=== PATIENT | male | born 1965 | race African-American/Black ===

== ENCOUNTER 2021-07-03 00:03 | Inpatient (IN) | payer MEDICARE, MEDICAID, SELFPAY ==
[2021-07-03 00:15] VITALS: BP 133/86; PULSE 100; RESP 18; TEMP 36.2; O2SAT 98
--- NOTE | 2021-07-03 03:11 | PC.NURSE ---
Pt signed a 3 day on 07/03/21. Up on 07/07/21.
[2021-07-03 03:19] VITALS: BMI 27.3
--- NOTE | 2021-07-03 04:21 | PC.ADMIT ---
Pt is a 55 yo male admitted to the unit after referral from [facility]. Transferred [place] [facility] to [facility]
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
[2021-07-03 06:23] LABS: Glucose, Whole Blood 170 mg/dL (60-115)
[2021-07-03] MEDS: Omeprazole 20 MG CAPSULE.DR PO (06:31)
[2021-07-03 07:44] LABS: Cholesterol 102 mg/dL; HDL Cholesterol 49 mg/dL; LDL Cholesterol Calculated 43 mg/dl; Triglycerides 50 mg/dL
[2021-07-03 08:16] LABS: Estimated Average Glucose 180 mg/dL; Hemoglobin A1c % 7.9 %
[2021-07-03] MEDS: Losartan Potassium 25 MG TABLET PO (08:49)
[2021-07-03] MEDS: lamoTRIgine 25 MG TABLET PO (08:49)
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
[2021-07-03] MEDS: Insulin Glargine,Hum.rec.anlog 100 UNIT/ML 10 ML VIAL 70 UNIT SUBCUT (08:50)
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
[2021-07-03 11:54] LABS: Glucose, Whole Blood 221 mg/dL (60-115)
[2021-07-03] MEDS: Insulin Lispro 100 UNIT/ML 3 ML VIAL SUBCUT ×3 (13:16→22:01)
[2021-07-03 17:03] LABS: Glucose, Whole Blood 156 mg/dL (60-115)
[2021-07-03 17:25] VITALS: BP 172/95; PULSE 83; TEMP 37; O2SAT 100
[2021-07-03 21:56] LABS: Glucose, Whole Blood 284 mg/dL (60-115)
[2021-07-03] MEDS: traZODone HCL 50 MG TABLET PO (22:03)
[2021-07-03] MEDS: risperiDONE 2 MG TABLET PO (22:03)
[2021-07-04 06:00] VITALS: BP 153/79; PULSE 72; RESP 16
[2021-07-04 06:50] LABS: Glucose, Whole Blood 171 mg/dL (60-115)
[2021-07-04 07:51] LABS: Estimated Average Glucose 180 mg/dL; Hemoglobin A1c % 7.9 %
[2021-07-04 07:53] LABS: Alanine Aminotransferase 16 U/L (0-40); Albumin Level 3.8 g/dL (3.5-5.0); Alkaline Phosphatase 90 U/L (39-117); Anion Gap 11 (12-20); Aspartate Amino Transferase 18 U/L (5-37); Blood Urea Nitrogen 9 mg/dL (9-16); Calcium 9.8 mg/dL (8.4-10.2); Carbon Dioxide 26 mmol/L (22-29); Chloride 106 mmol/L (96-108); Creatinine Clr Calc Pharmacy 78.8; Estimated Glomerular Filt Rate 57; Glucose Fasting 330 mg/dL (60-99); Potassium 4.9 mmol/L (3.3-5.1); Sodium 138 mmol/L (135-145); Total Protein 6.2 g/dL (6.5-8.0)
[2021-07-04 07:57] LABS: Cholesterol 124 mg/dL; HDL Cholesterol 56 mg/dL; LDL Cholesterol Calculated 58 mg/dl; Triglycerides 53 mg/dL
[2021-07-04 08:16] LABS: TSH reflex Free T4 2.74 uIU/mL (0.32-4.0)
[2021-07-04] MEDS: Insulin Lispro 100 UNIT/ML 3 ML VIAL SUBCUT ×4 (08:17→22:07)
[2021-07-04] MEDS: Insulin Glargine,Hum.rec.anlog 100 UNIT/ML 10 ML VIAL 70 UNIT SUBCUT (08:18)
[2021-07-04] MEDS: Losartan Potassium 25 MG TABLET PO (08:19)
[2021-07-04] MEDS: Omeprazole 20 MG CAPSULE.DR PO (08:19)
[2021-07-04 12:00] LABS: Glucose, Whole Blood 199 mg/dL (60-115)
[2021-07-04 13:55] LABS: Reflex LDLD? No
--- NOTE | 2021-07-04 17:00 | HO.PSYCHPN ---
Subjective Subjective Date of Service: 07/04/21 Reason For Visit: PTSD, MDD; recurrent episode Interim History: Patient shared that he is feeling better today. He said he has decided that he and his just need time away from each other and he says he will find another place to live. He says he has no plans to see her at this time. He denies SI and HI. Shares gratitude for the idea that may be exaggerating some things in his mind and that that realization was relieving. Patient remains convinced however that his is having an affair and that his delusional concerns are reality. Patient said he would like to discharge however he says that magnetic tape typewriter operator has full permission and that he signed a release of information to talk with his and trusts that magnetic tape typewriter operator will be fair. Mental Status Exam Mental Status Exam Narrative: Pt is alert and oriented; behavior is cooperative and calm; patient is in emotional distress; dressed appropriately in casual attire with adequate hygiene; mood is described as better and affect congruent; eye contact appropriate; Speech is normal rate, volume and prosody and not pressured; no psychomotor agitation/retardation present; thought process is organized and goal directed; Thought content is on delusional thoughts; denies any SI/HI. There is no evidence of perceptual disturbance and denies AVH.? Patients insight and judgment are impaired. Diagnostics Vital Signs (24Hr): Vital Signs - 24 hr 07/03/21 17:25 07/04/21 06:00 Temperature 98.6 F Pulse Rate 83 72 Respiratory Rate 16 Blood Pressure 172/95 H 153/79 H Pulse Oximetry 100 BMI result Body Mass Index 27.3 Labs Results: 07/04/21 07:22 Labs: Laboratory Results - last 48 hr 07/03/21 07/03/21 07/03/21 06:20 07:13 07:13 Sodium Potassium Chloride Carbon Dioxide Anion Gap BUN Creatinine Estim Creat Clear Calc Estimated GFR POC Glucose 170 H Fasting Glucose Estimat Average Glucose 180 Hemoglobin A1c % 7.9 Calcium Total Bilirubin AST ALT Alkaline Phosphatase Total Protein Albumin Triglycerides 50 Cholesterol 102 LDL Cholesterol, Calc 43 HDL Cholesterol 49 TSH 07/03/21 07/03/21 07/03/21 11:49 16:48 21:47 Sodium Potassium Chloride Carbon Dioxide Anion Gap BUN Creatinine Estim Creat Clear Calc Estimated GFR POC Glucose 221 H 156 H 284 H Fasting Glucose Estimat Average Glucose Hemoglobin A1c % Calcium Total Bilirubin AST ALT Alkaline Phosphatase Total Protein Albumin Triglycerides Cholesterol LDL Cholesterol, Calc HDL Cholesterol TSH 07/04/21 07/04/21 07/04/21 06:40 07:22 07:22 Sodium 138 Potassium 4.9 Chloride 106 Carbon Dioxide 26 Anion Gap 11 L BUN 9 Creatinine 1.30 Estim Creat Clear Calc 78.8 Estimated GFR 57 POC Glucose 171 H Fasting Glucose 330 H Estimat Average Glucose 180 Hemoglobin A1c % 7.9 Calcium 9.8 Total Bilirubin 1.0 AST 18 ALT 16 Alkaline Phosphatase 90 Total Protein 6.2 L Albumin 3.8 Triglycerides Cholesterol LDL Cholesterol, Calc HDL Cholesterol TSH 07/04/21 07/04/21 07:22 11:52 Sodium Potassium Chloride Carbon Dioxide Anion Gap BUN Creatinine Estim Creat Clear Calc Estimated GFR POC Glucose 199 H Fasting Glucose Estimat Average Glucose Hemoglobin A1c % Calcium Total Bilirubin AST ALT Alkaline Phosphatase Total Protein Albumin Triglycerides 53 Cholesterol 124 D LDL Cholesterol, Calc 58 HDL Cholesterol 56 TSH 2.74 Medications Medications Current Medications Al Hydroxide/Mg Hydroxide (Magnesium Hydrox/Alum Hydrox 30 Ml Oral.Susp) 30 ml PO Q6H PRN PRN Reason: Heartburn/Nausea Diphenhydramine HCl (Diphenhydramine Hcl 25 Mg Tablet) 50 mg PO Q4H PRN PRN Reason: agitation Haloperidol (Haloperidol 5 Mg Tablet) 5 mg PO Q4H PRN PRN Reason: agitation Hydroxyzine HCl (Hydroxyzine Hcl 50 Mg Tablet) 50 mg PO QID PRN PRN Reason: Anxiety Insulin Glargine (Insulin Glargine,Hum.Rec.Anlog 100 Unit/Ml 10 Ml Vial) 70 unit SUBCUT DAILY [facility] Last Admin: 07/04/21 08:18 Dose: 70 unit Documented by: Insulin Human Lispro (Insulin Lispro 100 Unit/Ml 3 Ml Vial) 0 unit SUBCUT QIDACHS [facility]; Protocol Last Admin: 07/04/21 12:04 Dose: 2 unit Documented by: Lorazepam (Lorazepam 1 Mg Tablet) 1 mg PO TID PRN PRN Reason: Anxiety Lorazepam (Lorazepam 1 Mg Tablet) 2 mg PO Q4H PRN PRN Reason: agitation Losartan Potassium (Losartan Potassium 25 Mg Tablet) 25 mg PO DAILY [facility]; Protocol Last Admin: 07/04/21 08:19 Dose: 25 mg Documented by: Magnesium Hydroxide (Milk Of Magnesia 30 Ml Oral.Susp) 30 ml PO DAILY PRN PRN Reason: Constipation Nicotine Polacrilex (Nicotine Polacrilex 2 Mg Gum) 4 mg BUCCAL Q2H PRN PRN Reason: Nicotine Cravings Omeprazole (Omeprazole 20 Mg Capsule.Dr) 20 mg PO DAILY@0630 [facility] Last Admin: 07/04/21 08:19 Dose: 20 mg Documented by: Risperidone (Risperidone 2 Mg Tablet) 2 mg PO BEDTIME [facility] Last Admin: 07/03/21 22:03 Dose: 2 mg Documented by: Trazodone HCl (Trazodone Hcl 50 Mg Tablet) 50 mg PO BEDTIME [facility] Last Admin: 07/03/21 22:03 Dose: 50 mg Documented by: Trazodone HCl (Trazodone Hcl 50 Mg Tablet) 50 mg PO BEDTIME PRN PRN Reason: Insomnia Allergies Allergies Allergy/AdvReac Type Severity Reaction Status Date / Time acetaminophen [From Vicodin] Allergy Unknown Hives Verified 07/03/21 03:10 hydrocodone [From Vicodin] Allergy Unknown Hives Verified 07/03/21 03:10 NSAIDS (Non-Steroidal Allergy Unknown Hives Verified 07/03/21 03:11 Anti-Inflamma bee pollen [bee stings] AdvReac Severe Anaphylaxis Verified 07/03/21 03:10 lisinopril AdvReac Severe Angioedema Verified 07/03/21 03:10 Assessment & Plan Assessment & Plan (1) Delusional disorder: Status: Acute Code(s): F22 - Delusional disorders (2) Diabetes: Status: Acute Code(s): E11.9 - Type 2 diabetes mellitus without complications Plan Patient is a 55-year-old male with history of PTSD, depression and substance abuse, 5 years sober, and 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 Patient reports that his 1st psychiatric hospitalization occurred this past March 2019 to when he called crisis feeling stressed that his was cheating on him. Patient was started on Risperdal 1 mg q.h.s. and Lamictal. -according to patient he has had never had any psychotic symptoms and that this past March is the 1st time he was ever psychiatrically admitted or had worries about 's infidelity -patient was briefly on Risperdal which was at a low dose and only for a couple of weeks; he stopped taking it due to delusional thought that his in her lower were tampering with the medication -while it is possible his is having an affair, it is exceedingly unlikely to the point of delusional that they are tampering with his Risperdal and poisoning his insulin; also patient is convinced that she and partner were and the bedroom although police found no other person. -patient denies any SI or HI but accepts that he may have said such things in heat of being emotionally overwhelmed and distraught and under the influence of alcohol and cocaine -patient agrees to restarted Risperdal and increasing dose -it is curious that patient has had no other psychiatric admissions prior to this past March; he also denies struggling with what could be considered delusional ideas prior to 3 months ago. Will need collateral. hx of cancer makes a paraneoplastic syndrome a rule out, though an unlikely one 07/04/21 patient id a better mood however lacks insight and continues to have paranoid delusion; still need collateral to complete the picture PLAN: CV Q 15 minute checks Risperdal and increased to 2 mg; may continue titrating Continue Lantus 70 units daily; patient said that at [facility] his A1c was within normal limits however he agrees to leave dose as is for now as magnetic tape typewriter operator could not find lab work Continue losartan Hold hydrochlorothiazide as patient's blood pressure is currently within normal limits; this is at patient's request and magnetic tape typewriter operator agrees Labs for [facility] reviewed: Creatinine 1.3 other was BUN, electrolytes within normal limits COVID negative WBC mildly elevated at 11.2 Will repeat labs I spent minutes with the patient and/or on the patient floor today, greater than?50% of which was spent counseling/coordinating care. Patient educated on: diagnosis Informed Consent: further education needed Reason for contiued inpatient stay Substantial Risk for: med/psych decompensation
[2021-07-04 17:31] LABS: Glucose, Whole Blood 239 mg/dL (60-115)
[2021-07-04 20:33] LABS: Glucose, Whole Blood 165 mg/dL (60-115)
[2021-07-04] MEDS: Magnesium Hydrox/Alum Hydrox 30 ML ORAL.SUSP PO (22:05)
[2021-07-04] MEDS: risperiDONE 2 MG TABLET PO (22:05)
[2021-07-04] MEDS: traZODone HCL 50 MG TABLET PO (22:05)
[2021-07-05 06:00] VITALS: BP 115/80; PULSE 96; RESP 16; TEMP 36.2; O2SAT 100
[2021-07-05] MEDS: Omeprazole 20 MG CAPSULE.DR PO (06:53)
[2021-07-05 07:25] LABS: Glucose, Whole Blood 155 mg/dL (60-115)
[2021-07-05] MEDS: Losartan Potassium 25 MG TABLET PO (09:05)
[2021-07-05] MEDS: Insulin Glargine,Hum.rec.anlog 100 UNIT/ML 10 ML VIAL 70 UNIT SUBCUT (09:05)
[2021-07-05] MEDS: Insulin Lispro 100 UNIT/ML 3 ML VIAL SUBCUT ×2 (09:06→12:21)
[2021-07-05 12:17] LABS: Glucose, Whole Blood 253 mg/dL (60-115)
--- NOTE | 2021-07-05 16:18 | P.PNPSI_ITS ---
Subjective Subjective Date of Service: 07/05/21 Reason For Visit: PTSD, MDD; recurrent episode Interim History: Aircraft Pneudraulics Repairer and patient discussed fiction and nonfiction prose writer's conversation with his . Patient was touched him became tearful realizing how concerned she was about him saying that he really did not know that she still cared. Aircraft Pneudraulics Repairer talked about how truly scared of him she was at which point patient broke down and tearfully exclaimed how truly sorry he was that he scared her. How much he did not mean to do that and how much she misses her. He repeated i'm so-so sorry that I scared her... He said that knowing this, how truly scared she was means that he needs to stay way from her so that he does not scare her further and that it is solidified in his mind he needs to move on. That point fiction and nonfiction prose writer shared with patient fiction and nonfiction prose writer's concerns for patient's diagnosis and that his mind is playing tricks on him. Initially patient felt shut down, however he was willing to consider this as a possibility even to the point of saying he will retract is 3 day notice and increase Risperdal on the chance that this is true, that his mind is playing tricks on him and that his worries are delusional. Patient shared how hard it is for him to be on the unit, feeling confined. He also repeated how hard it was for him to have to stay in the emergency room for 8 days, without talking to any provider, feeling marginalized and locked in and how that experiences influencing his current stay on the unit. However patient seem to feel like he would be able to handle it and said again he agrees to stay. Regarding Risperdal, patient like it to be titrated quickly to see if he can be effective rather than err on the side of under dosing. Aircraft Pneudraulics Repairer did not mention the letters or drilling doors shut Collateral: Aircraft Pneudraulics Repairer talked with patient's Sasha today who explains that in the past 20+ years of their relationship, patient has never had any psychotic symptoms or manic symptoms until this past March. She reports that he had been becoming paranoid. He called her to come home quickly and when she got home, she reports the light bulb had been on screwed and the room was dark, he had a knife in his hand and said he was not feeling well. He had some tea and said taste the Tea and was insistent on it. He then called the police to say that his had poisoned the Tea. Patient was for the 1st time psychiatrically hospitalized at [facility] at which time he was started on Risperdal. She said about 2 weeks ago she was at home and the police showed up saying that her called the cane loader to say that someone was in the house and that there were cameras in the house that could verify (no camera's). His says that he has been drilling the closet door shut to prevent anyone from hiding in there and then has drilled the front door shut so that knowing can get in or out. Patient said that she is very scared. He threatened to kill her and then also port ammonia underneath t he locked door to make her come out of the room she was hiding. Patient said that she and her daughter just found letters that he had wrote, 1 to his daughter and 1 to his son saying that he plans to kill his . Reportedly patient told his daughter that he was planning to come to the house to get his things and that it would be unnecessary for a police to be present. Mental Status Exam Mental Status Exam Narrative: Pt is alert and oriented; behavior is cooperative and calm; patient is in em otional distress; dressed appropriately in casual attire with adequate hygiene; mood is described as distraught and affect congruent, tearful; eye contact appropriate; Speech is normal rate, volume and prosody and not pressured; no psychomotor agitation/retardation present; thought process is organized and goal directed; Thought content is on paranoid, delusional thoughts; denies any SI/HI. There is no evidence of perceptual disturbance and denies AVH.? Patients insight and judgment are impaired. Diagnostics Vital Signs (24Hr): Vital Signs - 24 hr 07/05/21 06:00 Temperature 97.2 F Pulse Rate 96 Respiratory Rate 16 Blood Pressure 115/80 Pulse Oximetry 100 BMI result Body Mass Index 27.3 Labs Results: 07/04/21 07:22 Labs: Laboratory Results - last 48 hr 07/03/21 07/03/21 07/04/21 16:48 21:47 06:40 Sodium Potassium Chloride Carbon Dioxide Anion Gap BUN Creatinine Estim Creat Clear Calc Estimated GFR POC Glucose 156 H 284 H 171 H Fasting Glucose Estimat Average Glucose Hemoglobin A1c % Calcium Total Bilirubin AST ALT Alkaline Phosphatase Total Protein Albumin Triglycerides Cholesterol LDL Cholesterol, Calc HDL Cholesterol TSH 07/04/21 07/04/21 07/04/21 07:22 07:22 07:22 Sodium 138 Potassium 4.9 Chloride 106 Carbon Dioxide 26 Anion Gap 11 L BUN 9 Creatinine 1.30 Estim Creat Clear Calc 78.8 Estimated GFR 57 POC Glucose Fasting Glucose 330 H Estimat Average Glucose 180 Hemoglobin A1c % 7.9 Calcium 9.8 Total Bilirubin 1.0 AST 18 ALT 16 Alkaline Phosphatase 90 Total Protein 6.2 L Albumin 3.8 Triglycerides 53 Cholesterol 124 D LDL Cholesterol, Calc 58 HDL Cholesterol 56 TSH 2.74 07/04/21 07/04/21 07/04/21 11:52 17:25 20:21 Sodium Potassium Chloride Carbon Dioxide Anion Gap BUN Creatinine Estim Creat Clear Calc Estimated GFR POC Glucose 199 H 239 H 165 H Fasting Glucose Estimat Average Glucose Hemoglobin A1c % Calcium Total Bilirubin AST ALT Alkaline Phosphatase Total Protein Albumin Triglycerides Cholesterol LDL Cholesterol, Calc HDL Cholesterol TSH 07/05/21 07/05/21 06:56 12:10 Sodium Potassium Chloride Carbon Dioxide Anion Gap BUN Creatinine Estim Creat Clear Calc Estimated GFR POC Glucose 155 H 253 H Fasting Glucose Estimat Average Glucose Hemoglobin A1c % Calcium Total Bilirubin AST ALT Alkaline Phosphatase Total Protein Albumin Triglycerides Cholesterol LDL Cholesterol, Calc HDL Cholesterol TSH Medications Medications Current Medications Al Hydroxide/Mg Hydroxide (Magnesium Hydrox/Alum Hydrox 30 Ml Oral.Susp) 30 ml PO Q6H PRN PRN Reason: Heartburn/Nausea Last Admin: 07/04/21 22:05 Dose: 30 ml Documented by: Diphenhydramine HCl (Diphenhydramine Hcl 25 Mg Tablet) 50 mg PO Q4H PRN PRN Reason: agitation Haloperidol (Haloperidol 5 Mg Tablet) 5 mg PO Q4H PRN PRN Reason: agitation Hydroxyzine HCl (Hydroxyzine Hcl 50 Mg Tablet) 50 mg PO QID PRN PRN Reason: Anxiety Insulin Glargine (Insulin Glargine,Hum.Rec.Anlog 100 Unit/Ml 10 Ml Vial) 70 unit SUBCUT DAILY [facility] Last Admin: 07/05/21 09:05 Dose: 70 unit Documented by: Insulin Human Lispro (Insulin Lispro 100 Unit/Ml 3 Ml Vial) 0 unit SUBCUT QIDACHS [facility]; Protocol Last Admin: 07/05/21 12:21 Dose: 6 unit Documented by: Lorazepam (Lorazepam 1 Mg Tablet) 1 mg PO TID PRN PRN Reason: Anxiety Lorazepam (Lorazepam 1 Mg Tablet) 2 mg PO Q4H PRN PRN Reason: agitation Losartan Potassium (Losartan Potassium 25 Mg Tablet) 25 mg PO DAILY [facility]; Protocol Last Admin: 07/05/21 09:05 Dose: 25 mg Documented by: Magnesium Hydroxide (Milk Of Magnesia 30 Ml Oral.Susp) 30 ml PO DAILY PRN PRN Reason: Constipation Nicotine Polacrilex (Nicotine Polacrilex 2 Mg Gum) 4 mg BUCCAL Q2H PRN PRN Reason: Nicotine Cravings Omeprazole (Omeprazole 20 Mg Capsule.Dr) 20 mg PO DAILY@0630 [facility] Last Admin: 07/05/21 06:53 Dose: 20 mg Documented by: Risperidone (Risperidone 2 Mg Tablet) 4 mg PO BEDTIME [facility] Trazodone HCl (Trazodone Hcl 50 Mg Tablet) 50 mg PO BEDTIME [facility] Last Admin: 07/04/21 22:05 Dose: 50 mg Documented by: Trazodone HCl (Trazodone Hcl 50 Mg Tablet) 50 mg PO BEDTIME PRN PRN Reason: Insomnia Allergies Allergies Allergy/AdvReac Type Severity Reaction Status Date / Time acetaminophen [From Vicodin] Allergy Unknown Hives Verified 07/03/21 03:10 hydrocodone [From Vicodin] Allergy Unknown Hives Verified 07/03/21 03:10 NSAIDS (Non-Steroidal Allergy Unknown Hives Verified 07/03/21 03:11 Anti-Inflamma bee pollen [bee stings] AdvReac Severe Anaphylaxis Verified 07/03/21 03:10 lisinopril AdvReac Severe Angioedema Verified 07/03/21 03:10 Assessment & Plan Assessment & Plan (1) Delusional disorder: Status: Acute Code(s): F22 - Delusional disorders (2) Diabetes: Status: Acute Code(s): E11.9 - Type 2 diabetes mellitus without complications Plan Patient is a 55-year-old male with history of PTSD, depression and substance abuse, 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 Patient reports that his 1st psychiatric hospitalization occurred this past March 2019 to when he called crisis feeling stressed that his was cheating on him. Patient was started on Risperdal 1 mg q.h.s. and Lamictal. -according to patient he has had never had any psychotic symptoms and that this past March is the 1st time he was ever psychiatrically admitted or had worries about 's infidelity -patient was briefly on Risperdal which was at a low dose and only for a couple of weeks; he stopped taking it due to delusional thought that his in her lower were tampering with the medication -while it is possible his is having an affair, it is exceedingly unlikely to the point of delusional that they are tampering with his Risperdal and poisoning his insulin; also patient is convinced that she and partner were and the bedroom although police found no other person. -patient denies any SI or HI but accepts that he may have said such things in heat of being emotionally overwhelmed and distraught and under the influence of alcohol and cocaine -patient agrees to restarted Risperdal and increasing dose -it is curious that patient has had no other psychiatric admissions prior to this past March; he also denies struggling with what could be considered delusional ideas prior to 3 months ago. Will need collateral. CORRECTION:? At this time there does not seem to be history of cancer via his 's report and that patient only had a benign bile duct tumor that was removed, obviously making a paraneoplastic syndrome a very unlikely contributor. 07/05 patient continues to have paranoid delusions however he is open to considering that it is possible his mind is playing tricks on him and is thus willing to increase Risperdal and remain on the unit for treatment collateral obtained from who reports paranoid delusional thinking which started for the 1st time this past March and has resulted in to other psychiatric admissions. She denies any such psychiatric symptoms prior to this March PLAN: CV Q 15 minute checks INCREASE to Risperdal and increased to 4 mg Qhs; Continue Lantus 70 units daily; patient said that at [facility] his A1c was within normal limits however he agrees to leave dose as is for now as fiction and nonfiction prose writer could not find lab work Continue losartan Hold hydrochlorothiazide as patient's blood pressure is currently within normal limits; this is at patient's request and fiction and nonfiction prose writer agrees Labs for [facility] reviewed: Creatinine 1.3 other was BUN, electrolytes within normal limits COVID negative WBC mildly elevated at 11.2 Will repeat labs I spent minutes with the patient and/or on the patient floor today, greater than?50% of which was spent counseling/coordinating care. Patient educated on: diagnosis Informed Consent: further education needed Reason for contiued inpatient stay Substantial Risk for: harm to others and rapid decompensation
[2021-07-05 22:00] VITALS: BP 130/84; PULSE 84; TEMP 36.8; O2SAT 100
[2021-07-05] MEDS: risperiDONE 2 MG TABLET 4 MG PO (22:34)
[2021-07-05] MEDS: traZODone HCL 50 MG TABLET PO (22:34)
[2021-07-06 06:00] VITALS: BP 121/82; PULSE 88; RESP 18; TEMP 36.7; O2SAT 100
[2021-07-06] MEDS: Omeprazole 20 MG CAPSULE.DR PO (06:38)
[2021-07-06 06:48] LABS: Glucose, Whole Blood 153 mg/dL (60-115)
[2021-07-06 08:18] LABS: Glucose, Whole Blood 177 mg/dL (60-115)
[2021-07-06] MEDS: Losartan Potassium 25 MG TABLET PO (08:22)
[2021-07-06] MEDS: Insulin Glargine,Hum.rec.anlog 100 UNIT/ML 10 ML VIAL 70 UNIT SUBCUT (08:23)
--- NOTE | 2021-07-06 10:28 | HO.PSYCHPN ---
Subjective Subjective Date of Service: 07/06/21 Reason For Visit: PTSD, MDD; recurrent episode Interim History: pt significantly improved. He realizes thoughts are delusional, paranoid and untrue. He does not think cheating on him, nor that she tried to poison him or has hidden men in the house. Pt realizes his mind was playing tricks on him and that Risperdal has helped resolve this. Pt remains adamant that he's never before had psychotic symptoms or an episode like this in his life (which corroborates) prior to a few months ago. He wonders if these paranoid delusions were driven by his own excessive guilt for his decades of infidelity, feeling that he deserved to be cheated on and wanted to believe it so as to punish himself; however fueled by substance abuse it became a paranoid reality to him. He says when i couldn't prove it [that she was cheating on him] i think i made something up so that i could believe it. He reflects that his concerns were ridiculous such as being poisoned, that she would sneak a man in the house while he was gone for just a few minutes and then hide him in closet...that there would be a man hidden in the room, but that transaction coordinator couldn't find him and that she would cheat on him at all as it's never been an issue in the past. Also that he would drill screws into closet doors to shut lock them. He denies writing a letter about killing her but says he made a video. He remains adamant that he never had any thoughts, intentions, desires to harm her in any way. pt also acknowledged that he's been using more often and higher amounts than previously reported, saying he was hesitant, not wanting to be judged. Mental Status Exam Mental Status Exam Narrative: Pt is alert and oriented; behavior is cooperative and calm; dressed appropriately in casual attire with good hygiene; mood is described good and affect congruent, bright, calm; eye contact appropriate; Speech is normal rate, volume and prosody and not pressured; no psychomotor agitation/retardation present; thought process is organized and goal directed; Thought content is on realizing that he's been paranoid with delusional thoughts that he now knows are not true; denies any SI/HI. There is no evidence of perceptual disturbance and denies AVH.? Patients insight and judgment are improved and adequate Diagnostics Vital Signs (24Hr): Vital Signs - 24 hr 07/05/21 22:00 07/06/21 06:00 Temperature 98.2 F 98.1 F Pulse Rate 84 88 Respiratory Rate 18 Blood Pressure 130/84 121/82 Pulse Oximetry 100 100 BMI result Body Mass Index 27.3 Labs Results: 07/04/21 07:22 Labs: Laboratory Results - last 48 hr 07/04/21 07/04/21 07/04/21 11:52 17:25 20:21 POC Glucose 199 H 239 H 165 H 07/05/21 07/05/21 07/06/21 06:56 12:10 06:42 POC Glucose 155 H 253 H 153 H 07/06/21 08:14 POC Glucose 177 H Medications Medications Current Medications Al Hydroxide/Mg Hydroxide (Magnesium Hydrox/Alum Hydrox 30 Ml Oral.Susp) 30 ml PO Q6H PRN PRN Reason: Heartburn/Nausea Last Admin: 07/04/21 22:05 Dose: 30 ml Documented by: Diphenhydramine HCl (Diphenhydramine Hcl 25 Mg Tablet) 50 mg PO Q4H PRN PRN Reason: agitation Haloperidol (Haloperidol 5 Mg Tablet) 5 mg PO Q4H PRN PRN Reason: agitation Hydroxyzine HCl (Hydroxyzine Hcl 50 Mg Tablet) 50 mg PO QID PRN PRN Reason: Anxiety Insulin Glargine (Insulin Glargine,Hum.Rec.Anlog 100 Unit/Ml 10 Ml Vial) 70 unit SUBCUT DAILY [facility] Last Admin: 07/06/21 08:23 Dose: 70 unit Documented by: Insulin Human Lispro (Insulin Lispro 100 Unit/Ml 3 Ml Vial) 0 unit SUBCUT QIDACHS [facility]; Protocol Last Admin: 07/06/21 08:17 Dose: Not Given Documented by: Lorazepam (Lorazepam 1 Mg Tablet) 1 mg PO TID PRN PRN Reason: Anxiety Lorazepam (Lorazepam 1 Mg Tablet) 2 mg PO Q4H PRN PRN Reason: agitation Losartan Potassium (Losartan Potassium 25 Mg Tablet) 25 mg PO DAILY [facility]; Protocol Last Admin: 07/06/21 08:22 Dose: 25 mg Documented by: Magnesium Hydroxide (Milk Of Magnesia 30 Ml Oral.Susp) 30 ml PO DAILY PRN PRN Reason: Constipation Nicotine Polacrilex (Nicotine Polacrilex 2 Mg Gum) 4 mg BUCCAL Q2H PRN PRN Reason: Nicotine Cravings Omeprazole (Omeprazole 20 Mg Capsule.Dr) 20 mg PO DAILY@0630 [facility] Last Admin: 07/06/21 06:38 Dose: 20 mg Documented by: Risperidone (Risperidone 2 Mg Tablet) 4 mg PO BEDTIME [facility] Last Admin: 07/05/21 22:34 Dose: 4 mg Documented by: Trazodone HCl (Trazodone Hcl 50 Mg Tablet) 50 mg PO BEDTIME [facility] Last Admin: 07/05/21 22:34 Dose: 50 mg Documented by: Trazodone HCl (Trazodone Hcl 50 Mg Tablet) 50 mg PO BEDTIME PRN PRN Reason: Insomnia Allergies Allergies Allergy/AdvReac Type Severity Reaction Status Date / Time acetaminophen [From Vicodin] Allergy Unknown Hives Verified 07/03/21 03:10 hydrocodone [From Vicodin] Allergy Unknown Hives Verified 07/03/21 03:10 NSAIDS (Non-Steroidal Allergy Unknown Hives Verified 07/03/21 03:11 Anti-Inflamma bee pollen [bee stings] AdvReac Severe Anaphylaxis Verified 07/03/21 03:10 lisinopril AdvReac Severe Angioedema Verified 07/03/21 03:10 Assessment & Plan Assessment & Plan (1) Delusional disorder: Status: Acute Code(s): F22 - Delusional disorders (2) Diabetes: Status: Acute Code(s): E11.9 - Type 2 diabetes mellitus without complications Plan Patient is a 55-year-old male with history of PTSD, depression and substance abuse, 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 Patient reports that his 1st psychiatric hospitalization occurred this past March 2019 to when he called crisis feeling stressed that his was cheating on him. Patient was started on Risperdal 1 mg q.h.s. and Lamictal. -according to patient he has had never had any psychotic symptoms and that this past March is the 1st time he was ever psychiatrically admitted or had worries about 's infidelity -patient was briefly on Risperdal which was at a low dose and only for a couple of weeks; he stopped taking it due to delusional thought that his in her lower were tampering with the medication -while it is possible his is having an affair, it is exceedingly unlikely to the point of delusional that they are tampering with his Risperdal and poisoning his insulin; also patient is convinced that she and partner were and the bedroom although police found no other person. -patient denies any SI or HI but accepts that he may have said such things in heat of being emotionally overwhelmed and distraught and under the influence of alcohol and cocaine -patient agrees to restarted Risperdal and increasing dose -it is curious that patient has had no other psychiatric admissions prior to this past March; he also denies struggling with what could be considered delusional ideas prior to 3 months ago. Will need collateral. CORRECTION:? At this time there does not seem to be history of cancer via his 's report and that patient only had a benign bile duct tumor that was removed, obviously making a paraneoplastic syndrome a very unlikely contributor. 07/05 patient continues to have paranoid delusions however he is open to considering that it is possible his mind is playing tricks on him and is thus willing to increase Risperdal and remain on the unit for treatment collateral obtained from who reports paranoid delusional thinking which started for the 1st time this past March and has resulted in to other psychiatric admissions. She denies any such psychiatric symptoms prior to this April 03 Patient reports clear understanding that he has been suffering from paranoid delusions which he now knows are not true at all; he says he knows his was not she did on him and that his behaviors and thoughts were ridiculous and completely based on psychotic symptoms. Patient feels tremendous relief and understands that Risperdal has been what has resolved the psychotic symptoms. Patient agrees to rescind 3 day notice and stay another day to further stabilize PLAN: CV; 3 day Q 15 minute checks Risperdal and increased to 4 mg Qhs; Continue Lantus 70 units daily; patient said that at [facility] his A1c was within normal limits however he agrees to leave dose as is for now as television script writer could not find lab work Continue losartan Hold hydrochlorothiazide as patient's blood pressure is currently within normal limits; this is at patient's request and television script writer agrees Labs for [facility] reviewed: Creatinine 1.3 other was BUN, electrolytes within normal limits COVID negative WBC mildly elevated at 11.2 Will repeat labs I spent minutes with the patient and/or on the patient floor today, greater than?50% of which was spent counseling/coordinating care. Patient educated on: diagnosis Informed Consent: understands Reason for contiued inpatient stay Substantial Risk for: stable for discharge
[2021-07-06 12:16] LABS: Glucose, Whole Blood 207 mg/dL (60-115)
[2021-07-06] MEDS: Insulin Lispro 100 UNIT/ML 3 ML VIAL SUBCUT ×3 (13:17→22:19)
[2021-07-06 16:57] LABS: Glucose, Whole Blood 213 mg/dL (60-115)
[2021-07-06 22:00] LABS: Glucose, Whole Blood 259 mg/dL (60-115)
[2021-07-06] MEDS: traZODone HCL 50 MG TABLET PO (22:18)
[2021-07-06] MEDS: risperiDONE 2 MG TABLET 4 MG PO (22:19)
[2021-07-06] MEDS: Magnesium Hydrox/Alum Hydrox 30 ML ORAL.SUSP PO (22:23)
[2021-07-07] MEDS: Omeprazole 20 MG CAPSULE.DR PO (06:34)
[2021-07-07 08:19] LABS: Glucose, Whole Blood 163 mg/dL (60-115)
[2021-07-07] MEDS: Insulin Lispro 100 UNIT/ML 3 ML VIAL SUBCUT ×4 (08:35→21:51)
[2021-07-07] MEDS: Losartan Potassium 25 MG TABLET PO (08:35)
[2021-07-07] MEDS: Insulin Glargine,Hum.rec.anlog 100 UNIT/ML 10 ML VIAL 70 UNIT SUBCUT (08:36)
[2021-07-07 08:39] VITALS: BP 119/76; PULSE 84; RESP 14; TEMP 36.3; O2SAT 98
[2021-07-07 12:35] LABS: Glucose, Whole Blood 240 mg/dL (60-115)
--- NOTE | 2021-07-07 17:42 | HO.PSYCHPN ---
Subjective Subjective Date of Service: 07/07/21 Reason For Visit: PTSD, MDD; recurrent episode Interim History: Patient remains in a good mood, is clear minded. Paranoid delusions remain fully resolved. Patient continues to discuss how Derailed he was by the psychotic symptoms and how gratefully is that he has an answer for what was happening and that he is back to his normal self. Account Services Coordinator discussed how it seems patient had some level of dissociation and patient agrees that this is the only way to account for him having said her done things he does not remember. Patient is hopeful that he and his can reconcile and that the restraining order will be let go. He says however that he will give his is much room in space as she needs to make this decision, will not go to the house and will respect the time she needs and whatever decision she decides. Patient is eager to get into NA. He says he will stay on the medication. Account Services Coordinator reviewed in detail the risks/side effects of Risperdal, including but not limited to galactorrhea and TD; patient asked questions and understood and wants to continue with this medication. Patient said he is grateful that he stayed another day which helped him to continue to reflect and process this past upsetting life event. Patient would like to discharge tomorrow to which global technical writer agrees. Account Services Coordinator talked to patient's who said that she did end up talking to patient on the phone and it sounds like her old back. She said he apologized and explained to her how he knows he was having paranoid delusions and that All the things he thought, he now knows were were untrue. She is relieved and agrees that he is very likely ready for discharge. Mental Status Exam Mental Status Exam Narrative: Pt is alert and oriented; behavior is cooperative and calm; dressed appropriately in casual attire with good hygiene; mood is described good and affect congruent, bright, calm; eye contact appropriate; Speech is normal rate, volume and prosody and not pressured; no psychomotor agitation/retardation present; thought process is organized and goal directed; Thought content is on realizing that he's been paranoid with delusional thoughts that he now knows are not true; denies any SI/HI. There is no evidence of perceptual disturbance and denies AVH.? Patients insight and judgment are improved and adequat Diagnostics Vital Signs (24Hr): Vital Signs - 24 hr 07/07/21 08:39 Temperature 97.4 F Pulse Rate 84 Respiratory Rate 14 Blood Pressure 119/76 Pulse Oximetry 98 BMI result Body Mass Index 27.3 Labs Results: 07/04/21 07:22 Labs: Laboratory Results - last 48 hr 07/06/21 07/06/21 07/06/21 06:42 08:14 12:12 POC Glucose 153 H 177 H 207 H 07/06/21 07/06/21 07/07/21 16:53 21:55 08:14 POC Glucose 213 H 259 H 163 H 07/07/21 12:31 POC Glucose 240 H Medications Medications Current Medications Al Hydroxide/Mg Hydroxide (Magnesium Hydrox/Alum Hydrox 30 Ml Oral.Susp) 30 ml PO Q6H PRN PRN Reason: Heartburn/Nausea Last Admin: 07/06/21 22:23 Dose: 30 ml Documented by: Diphenhydramine HCl (Diphenhydramine Hcl 25 Mg Tablet) 50 mg PO Q4H PRN PRN Reason: agitation Haloperidol (Haloperidol 5 Mg Tablet) 5 mg PO Q4H PRN PRN Reason: agitation Hydroxyzine HCl (Hydroxyzine Hcl 50 Mg Tablet) 50 mg PO QID PRN PRN Reason: Anxiety Insulin Glargine (Insulin Glargine,Hum.Rec.Anlog 100 Unit/Ml 10 Ml Vial) 70 unit SUBCUT DAILY [facility] Last Admin: 07/07/21 08:36 Dose: 70 unit Documented by: Insulin Human Lispro (Insulin Lispro 100 Unit/Ml 3 Ml Vial) 0 unit SUBCUT QIDACHS [facility]; Protocol Last Admin: 07/07/21 12:36 Dose: 4 unit Documented by: Lorazepam (Lorazepam 1 Mg Tablet) 1 mg PO TID PRN PRN Reason: Anxiety Lorazepam (Lorazepam 1 Mg Tablet) 2 mg PO Q4H PRN PRN Reason: agitation Losartan Potassium (Losartan Potassium 25 Mg Tablet) 25 mg PO DAILY [facility]; Protocol Last Admin: 07/07/21 08:35 Dose: 25 mg Documented by: Magnesium Hydroxide (Milk Of Magnesia 30 Ml Oral.Susp) 30 ml PO DAILY PRN PRN Reason: Constipation Nicotine Polacrilex (Nicotine Polacrilex 2 Mg Gum) 4 mg BUCCAL Q2H PRN PRN Reason: Nicotine Cravings Omeprazole (Omeprazole 20 Mg Capsule.Dr) 20 mg PO DAILY@0630 [facility] Last Admin: 07/07/21 06:34 Dose: 20 mg Documented by: Risperidone (Risperidone 2 Mg Tablet) 4 mg PO BEDTIME [facility] Last Admin: 07/06/21 22:19 Dose: 4 mg Documented by: Trazodone HCl (Trazodone Hcl 50 Mg Tablet) 50 mg PO BEDTIME [facility] Last Admin: 07/06/21 22:18 Dose: 50 mg Documented by: Trazodone HCl (Trazodone Hcl 50 Mg Tablet) 50 mg PO BEDTIME PRN PRN Reason: Insomnia Allergies Allergies Allergy/AdvReac Type Severity Reaction Status Date / Time acetaminophen [From Vicodin] Allergy Unknown Hives Verified 07/03/21 03:10 hydrocodone [From Vicodin] Allergy Unknown Hives Verified 07/03/21 03:10 NSAIDS (Non-Steroidal Allergy Unknown Hives Verified 07/03/21 03:11 Anti-Inflamma bee pollen [bee stings] AdvReac Severe Anaphylaxis Verified 07/03/21 03:10 lisinopril AdvReac Severe Angioedema Verified 07/03/21 03:10 Assessment & Plan Assessment & Plan (1) Delusional disorder: Status: Acute Code(s): F22 - Delusional disorders (2) Diabetes: Status: Acute Code(s): E11.9 - Type 2 diabetes mellitus without complications Plan Patient is a 55-year-old male with history of PTSD, depression and substance abuse, 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 Patient reports that his 1st psychiatric hospitalization occurred this past March 2019 to when he called crisis feeling stressed that his was cheating on him. Patient was started on Risperdal 1 mg q.h.s. and Lamictal. -according to patient he has had never had any psychotic symptoms and that this past March is the 1st time he was ever psychiatrically admitted or had worries about 's infidelity -patient was briefly on Risperdal which was at a low dose and only for a couple of weeks; he stopped taking it due to delusional thought that his in her lower were tampering with the medication -while it is possible his is having an affair, it is exceedingly unlikely to the point of delusional that they are tampering with his Risperdal and poisoning his insulin; also patient is convinced that she and partner were and the bedroom although police found no other person. -patient denies any SI or HI but accepts that he may have said such things in heat of being emotionally overwhelmed and distraught and under the influence of alcohol and cocaine -patient agrees to restarted Risperdal and increasing dose -it is curious that patient has had no other psychiatric admissions prior to this past March; he also denies struggling with what could be considered delusional ideas prior to 3 months ago. Will need collateral. CORRECTION:? At this time there does not seem to be history of cancer via his 's report and that patient only had a benign bile duct tumor that was removed, obviously making a paraneoplastic syndrome a very unlikely contributor. 07/05 patient continues to have paranoid delusions however he is open to considering that it is possible his mind is playing tricks on him and is thus willing to increase Risperdal and remain on the unit for treatment collateral obtained from who reports paranoid delusional thinking which started for the 1st time this past March and has resulted in to other psychiatric admissions. She denies any such psychiatric symptoms prior to this April 03 Patient reports clear understanding that he has been suffering from paranoid delusions which he now knows are not true at all; he says he knows his was not she did on him and that his behaviors and thoughts were ridiculous and completely based on psychotic symptoms. Patient feels tremendous relief and understands that Risperdal has been what has resolved the psychotic symptoms. Patient agrees to rescind 3 day notice and stay another day to further stabilize 07/07 All paranoid delusions remained resolved; patient is clear minded with good insight and judgment. Understands risks/side effects of medication and wants to continue with them. Patient would like to discharge tomorrow. He says he will stay away from his as long as she wants him to, though he is hopeful that next week when there is a court hearing for restraining order, they will be able to reconcile further. Patient has no SI, no HI and no AVH. He continues to demonstrate good behavioral and impulse control and is appropriate with peers and staff. Patient's request for discharge is honored as he is not in imminent risk of harm to self or others. PLAN: CV; 3 day Q 15 minute checks Risperdal and increased to 4 mg Qhs; Continue Lantus 70 units daily; patient said that at [facility] his A1c was within normal limits however he agrees to leave dose as is for now as global technical writer could not find lab work Continue losartan Hold hydrochlorothiazide as patient's blood pressure is currently within normal limits; this is at patient's request and global technical writer agrees Labs for [facility] reviewed: Creatinine 1.3 other was BUN, electrolytes within normal limits COVID negative WBC mildly elevated at 11.2 Will repeat labs I spent minutes with the patient and/or on the patient floor today, greater than?50% of which was spent counseling/coordinating care. Patient educated on: diagnosis, medication risk/benefits and substance abuse Informed Consent: understands Reason for contiued inpatient stay Substantial Risk for: stable for discharge
[2021-07-07 18:00] VITALS: BP 134/74; RESP 24; TEMP 36.8; O2SAT 98
[2021-07-07 18:00] LABS: Glucose, Whole Blood 204 mg/dL (60-115)
[2021-07-07] MEDS: traZODone HCL 50 MG TABLET PO (21:43)
[2021-07-07] MEDS: risperiDONE 2 MG TABLET 4 MG PO (21:43)
[2021-07-07] MEDS: LORazepam 1 MG TABLET PO (21:54)
[2021-07-07 22:00] LABS: Glucose, Whole Blood 262 mg/dL (60-115)
[2021-07-08] MEDS: Omeprazole 20 MG CAPSULE.DR PO (06:10)
[2021-07-08 07:00] LABS: Glucose, Whole Blood 101 mg/dL (60-115)
[2021-07-08] MEDS: Insulin Glargine,Hum.rec.anlog 100 UNIT/ML 10 ML VIAL 70 UNIT SUBCUT (09:20)
[2021-07-08] MEDS: Losartan Potassium 25 MG TABLET PO (09:20)
[2021-07-08 09:21] VITALS: BP 153/97; PULSE 107; TEMP 36.5
--- NOTE | 2021-07-08 09:21 | P.DS_ITS ---
DS: Providers Provider Date of Service: 07/08/21 Date of admission: 07/03/21 00:03 Date of discharge: 07/08/21 Primary care physician: Unknown Physician Attending physician on admission: Cody Tovar Consults: 07/03/21 02:43 Consult to Hospitalist Routine Consulting Provider: Hospitalist Reason For Exam: admitting physical Attending physician on discharge: Cody Tovar DS: Diagnosis Discharge Diagnosis (1) Delusional disorder: Status: Acute (2) Diabetes: Status: Acute DS: Medications Discharge Medications Home Medications: Previous Rx's Medication Instructions Recorded insulin glargine 100 unit/mL 70 unit (0.7 mL) SUBCUT QAM 30 07/08/21 subcutaneous solution (Lantus Days #21 ml U-100 Insulin) losartan 25 mg tablet 25 mg PO DAILY 30 Days #30 tab 07/08/21 pantoprazole 20 mg tablet,delayed 20 mg PO DAILY 30 Days #30 tab 07/08/21 release risperidone 2 mg tablet 4 mg PO BEDTIME 30 Days #60 tab 07/08/21 trazodone 50 mg tablet 50 mg PO BEDTIME PRN 30 Days #30 07/08/21 tab Mental Status Exam Mental Status Exam Narrative: Pt is alert and oriented; behavior is cooperative and calm; dressed appropriately in casual attire with good hygiene; mood is described good and affect congruent, bright, calm; eye contact appropriate; Speech is normal rate, volume and prosody and not pressured; no psychomotor agitation/retardation present; thought process is organized and goal directed; Thought content is on realizing that he's been paranoid with delusional thoughts that he now knows are not true; denies any SI/HI. There is no evidence of perceptual disturbance and denies AVH.? Patients insight and judgment are intact Data Data Completed and Pending Completed studies during hospitalization [Text1]: 07/03/21 07/03/21 07/03/21 06:20 07:13 07:13 Sodium Potassium Chloride Carbon Dioxide Anion Gap BUN Creatinine Estim Creat Clear Calc Estimated GFR POC Glucose 170 H Fasting Glucose Estimat Average Glucose 180 Hemoglobin A1c % 7.9 Calcium Total Bilirubin AST ALT Alkaline Phosphatase Total Protein Albumin Triglycerides 50 Cholesterol 102 LDL Cholesterol, Calc 43 HDL Cholesterol 49 TSH 07/03/21 07/03/21 07/03/21 11:49 16:48 21:47 Sodium Potassium Chloride Carbon Dioxide Anion Gap BUN Creatinine Estim Creat Clear Calc Estimated GFR POC Glucose 221 H 156 H 284 H Fasting Glucose Estimat Average Glucose Hemoglobin A1c % Calcium Total Bilirubin AST ALT Alkaline Phosphatase Total Protein Albumin Triglycerides Cholesterol LDL Cholesterol, Calc HDL Cholesterol TSH 07/04/21 07/04/21 07/04/21 06:40 07:22 07:22 Sodium 138 Potassium 4.9 Chloride 106 Carbon Dioxide 26 Anion Gap 11 L BUN 9 Creatinine 1.30 Estim Creat Clear Calc 78.8 Estimated GFR 57 POC Glucose 171 H Fasting Glucose 330 H Estimat Average Glucose 180 Hemoglobin A1c % 7.9 Calcium 9.8 Total Bilirubin 1.0 AST 18 ALT 16 Alkaline Phosphatase 90 Total Protein 6.2 L Albumin 3.8 Triglycerides Cholesterol LDL Cholesterol, Calc HDL Cholesterol TSH 07/04/21 07/04/21 07/04/21 07:22 11:52 17:25 Sodium Potassium Chloride Carbon Dioxide Anion Gap BUN Creatinine Estim Creat Clear Calc Estimated GFR POC Glucose 199 H 239 H Fasting Glucose Estimat Average Glucose Hemoglobin A1c % Calcium Total Bilirubin AST ALT Alkaline Phosphatase Total Protein Albumin Triglycerides 53 Cholesterol 124 D LDL Cholesterol, Calc 58 HDL Cholesterol 56 TSH 2.74 07/04/21 07/05/21 07/05/21 20:21 06:56 12:10 Sodium Potassium Chloride Carbon Dioxide Anion Gap BUN Creatinine Estim Creat Clear Calc Estimated GFR POC Glucose 165 H 155 H 253 H Fasting Glucose Estimat Average Glucose Hemoglobin A1c % Calcium Total Bilirubin AST ALT Alkaline Phosphatase Total Protein Albumin Triglycerides Cholesterol LDL Cholesterol, Calc HDL Cholesterol TSH 07/06/21 07/06/21 07/06/21 06:42 08:14 12:12 Sodium Potassium Chloride Carbon Dioxide Anion Gap BUN Creatinine Estim Creat Clear Calc Estimated GFR POC Glucose 153 H 177 H 207 H Fasting Glucose Estimat Average Glucose Hemoglobin A1c % Calcium Total Bilirubin AST ALT Alkaline Phosphatase Total Protein Albumin Triglycerides Cholesterol LDL Cholesterol, Calc HDL Cholesterol TSH 07/06/21 07/06/21 07/07/21 16:53 21:55 08:14 Sodium Potassium Chloride Carbon Dioxide Anion Gap BUN Creatinine Estim Creat Clear Calc Estimated GFR POC Glucose 213 H 259 H 163 H Fasting Glucose Estimat Average Glucose Hemoglobin A1c % Calcium Total Bilirubin AST ALT Alkaline Phosphatase Total Protein Albumin Triglycerides Cholesterol LDL Cholesterol, Calc HDL Cholesterol TSH 07/07/21 07/07/21 07/07/21 12:31 17:55 21:41 Sodium Potassium Chloride Carbon Dioxide Anion Gap BUN Creatinine Estim Creat Clear Calc Estimated GFR POC Glucose 240 H 204 H 262 H Fasting Glucose Estimat Average Glucose Hemoglobin A1c % Calcium Total Bilirubin AST ALT Alkaline Phosphatase Total Protein Albumin Triglycerides Cholesterol LDL Cholesterol, Calc HDL Cholesterol TSH 07/08/21 06:13 Sodium Potassium Chloride Carbon Dioxide Anion Gap BUN Creatinine Estim Creat Clear Calc Estimated GFR POC Glucose 101 Fasting Glucose Estimat Average Glucose Hemoglobin A1c % Calcium Total Bilirubin AST ALT Alkaline Phosphatase Total Protein Albumin Triglycerides Cholesterol LDL Cholesterol, Calc HDL Cholesterol TSH DS: Summary Hospital Course Hospital Course: Patient is a 55-year-old male with history of PTSD, depression and substance abuse and 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 Patient reports that his 1st psychiatric hospitalization occurred this past March 2019 to when he called crisis feeling stressed that his was cheating on him.? Patient was started on Risperdal 1 mg q.h.s. and Lamictal. On Admission, patient was calm, cooperative, polite and denied any SI or HI. He remained with paranoid delusion about his 's infidelity and associated concerns (she tried to poison him, men hiding in closet, cameras in the house...) and was without any insight. He was however willing to continue in increase Risperdal to 2mg; Lamictal was discontinued as he was only on 25 mg and without any manic symptoms; hydrochlorothiazide also not continued since patient's blood pressure was within normal limits with which patient agreed. Patient denied ever making homicidal threat or suicidal threat to his however he admitted he had used some alcohol and cannabis and that perhaps he said such things and does not remember them. He was also tearful to realize how frightened she was by him and denied any desire, thought or plan to harm his , maintaining that he loves her and will respect her restraining order and move on with his life if she does not want to be with him. Collateral was obtained and patient's shared that patient's delusions started for the very 1st time this past March and that prior to this there been no psychotic or manic symptoms at all in the 20+ years they have known each other. Patient remained cooperative, with good behavioral and impulse control on the unit, getting along well with staff and peers, attending groups and pleasant and appropriate in the milieu. He remained with no insight and believing delusions were real however patient was willingly endured reality testing by senior underwriter and agreed that it is possible his mind is playing tricks on him. He agreed to significantly increase Risperdal to 4 mg. reality testing. Following this increase patient's paranoid delusions resolved nearly overnight. Following this increase, Patient reported clear understanding that he has been suffering from paranoid delusions which he now knows are not true at all; he says he knows his was not cheating and his behaviors and thoughts were ridiculous and completely based on psychotic symptoms.? Patient also it volunteered that he had minimized his drug use and reports he has been using much more frequently and at higher amounts then he had for said; he understands how this significantly worsened his psychiatric symptoms and wants to continue to pursue sobriety and plans to get reinvolved with NA. feels tremendous relief and understands that Risperdal has been what has resolved the psychotic symptoms.? Patient rescinded 3 day notice to remain on unit for another day to continuing process this event. Patient remained in a good mood and clear minded with Paranoid delusions fully resolved. Patient felt he was tolerating the medications well and agreed to continue the dose. Race Board Attendant reviewed in detail the risks/side effects of Risperdal, including but not limited to galactorrhea and TD; patient asked questions and understood and wants to continue with this medication. Patient is hopeful that he and his can reconcile and that the restraining order will be let go.? He says however that he will fully respect the restraining order and give his is much room in space as she needs to make this decision and will not go to the house, contact her or go near hear until she wants him to and restraining order is retracted. Race Board Attendant talked to patient's who said that she did end up talking to patient on the phone and it sounds like her old back.? She said he apologized and explained to her how he knows he was having paranoid delusions and that All the things he thought, he now knows were were untrue. She is relieved and agrees that he is very likely ready for discharge. Patient asked for discharge. He remains without any SI, HI AVH or delusional thoughts and is clear minded, understanding that he has a psychiatric illness that requires medication which she is grateful for and intends to remain on. Patient will stay with either a friend or a hotel until he finds a more permanent place to live or restraining order it is retracted and he and his reconcile. Patient is not in imminent risk for harm to self or others and his request for discharge honored. Time spent discussing smoking cessation with patient: 3 to 10 minutes Status at Discharge Functional status at discharge: independent ambulation Overall status at discharge: patient is back to baseline Time Spent with Patient Time attestation: Total time spent providing and/or coordinating discharge services: Time spent: Greater than 30 minutes Discharge Plan Discharge Patient Disposition: Home, Self-Care Discharge Diagnosis: Delusional disorder Referrals: DAVID NORWOOD, THERAPIST [Other] - 07/12/21 1:00 pm (TELEHEALTH) LATESHA MANNING, PSYCHIATRY [Other] - 07/12/21 3:00 pm (TELEHEALTH) Physician,Unknown J [Primary Care Provider] - 1 Week Discharge Medications: New risperidone 2 mg Tablet 4 mg PO BEDTIME 30 Days Qty: 60 0RF Continued Lantus U-100 Insulin 100 unit/mL solution 70 unit subcut QAM 30 Days Qty: 21 0RF pantoprazole 20 mg Tablet,Delayed Release (Dr/Ec) 20 mg PO DAILY 30 Days Qty: 30 0RF losartan 25 mg Tablet 25 mg PO DAILY 30 Days Qty: 30 0RF Changed trazodone 50 mg tablet 50 mg PO BEDTIME PRN (Reason: insomnia) 30 Days Qty: 30 0RF Discontinued risperidone 1 mg tablet 1 tab PO BEDTIME 0RF hydroxyzine HCl 50 mg Tablet 50 mg PO QID PRN (Reason: Anxiety) 0RF lamotrigine [Lamictal] 25 mg tablet 1 tab PO DAILY 0RF lorazepam 1 mg Tablet 1 mg PO TID PRN (Reason: Anxiety) 0RF Discharge Orders: Discharge Order (Routine); Ordered 07/08/21 Ordered By: Cody Tovar Diet: diabetic diet Activity on Discharge: As tolerated Stand Alone Forms: Patient Portal Discharge page Care Plan Goals: Maintain mood and safe behaviors Take medications as prescribed Continue to pursue sobriety Practice coping skills Continue with outpatient providers and reach out to them as needed Health Concerns: Mood stability and behaviors Sobriety Diabetes Hypertension History of Bile Duct Tumor Plan of Treatment: Follow up with your PCP, psychiatric provider and other outpatient providers regarding above concerns Take medications as prescribed Assessment: Risk assessment at time of discharge:? Patient was interviewed prior to discharge and found to be fully oriented and without any SI or HI. Patient has insight and demonstrates good judgment in terms of wanting to pursue treatment. Patient is not in imminent risk of harm to self or others and has a safety plan that includes presenting to the closest ER or calling 911 if feeling unsafe.? Patient has been observed closely by nursing and unit staff throughout admission; patient has not engaged in any behaviors that suggest dangerousness to self or others and has demonstrated appropriate behaviors and impulse control
[2021-07-08 11:31] LABS: Glucose, Whole Blood 301 mg/dL (60-115)
[2021-07-08] MEDS: Naloxone HCl Nasal TAKE HOME 4 MG SPRAY NOSTRILALT (12:47)
== END 2021-07-08 13:19 | disposition home or self-care (01) | DRG 885 ==
PROVIDERS: Admitting Provider Psychiatry & Neurology Psychiatry; Visit Provider Psychiatry & Neurology Psychiatry
DX: F22 Delusional disorders (principal); F33.9 Major depressive disorder, recurrent, unspecified; R45.851 Suicidal ideations; F43.10 Post-traumatic stress disorder, unspecified; R45.850 Homicidal ideations; K21.9 Gastro-esophageal reflux disease without esophagitis; F10.10 Alcohol abuse, uncomplicated; F14.10 Cocaine abuse, uncomplicated; I10 Essential (primary) hypertension; E78.5 Hyperlipidemia, unspecified; E11.9 Type 2 diabetes mellitus without complications; Z88.6 Allergy status to analgesic agent; Z88.5 Allergy status to narcotic agent; Z79.4 Long term (current) use of insulin; Z79.899 Other long term (current) drug therapy
CPT/HCPCS: 36415; 80053; 80061; 82947; 83036; 84443

== ENCOUNTER 2022-03-05 02:27 | Inpatient (IN) | payer MEDICARE, MEDICAID, SELFPAY ==
[2022-03-05 02:33] VITALS: BP 128/85; PULSE 98; RESP 16; TEMP 37.3; O2SAT 98; BMI 24.8
[2022-03-05 02:40] LABS: Glucose, Whole Blood 201 mg/dL (60-115)
[2022-03-05 03:23] LABS: Appearance Urine Clear; Color Urine Yellow; Glucose Urine UA 100 mg/dL (Negative); Leukocyte Esterase Urine Negative (Negative); Nitrite Urine Negative (Negative); PH 5.5 (5.0-9.0); UMIC TRIGGER UA YES; Urine Blood Trace (Negative); Urine Ketones Negative (Negative); Urine Protein 100 (2+) mg/dL (Neg-Trace)
[2022-03-05 03:24] LABS: MANUAL DIFF FLAG NO
[2022-03-05 03:25] LABS: Basophils Percent Auto 0.3 % (0-2); Eosinophils Absolute Auto 0.1 X10*3/uL (0.0-0.4); Eosinophils Percent Auto 0.8 % (0-4); Hematocrit 38.2 % (42.0-52.0); Hemoglobin 13.3 g/dl (14.0-18.0); Imm Gran Abs Auto 0.03 X10*3/uL (0.00-0.03); Imm Gran Pct Auto 0.3 % (0.0-0.4); Lymphocytes Absolute Auto 1.7 X10*3/uL (1.2-4.9); Lymphocytes Percent Auto 17.3 % (20-40); Mean Corpuscular HGB Conc 34.8 g/dl (31.0-36.0); Mean Corpuscular Hemoglobin 28.7 pg (27.0-33.0); Mean Corpuscular Volume 82.3 fL (80.0-98.0); Mean Platelet Volume 9.4 fL (9.4-12.4); Monocytes Absolute Auto 0.8 X10*3/uL (0.1-1.2); Monocytes Percent Auto 8.3 % (2-11); Platelet Count 216 X10*3/uL (160-400); Red Blood Count 4.64 X10*6/uL (4.60-5.80); Red Cell Distribution Width 12.1 % (11.0-16.0); White Blood Count 9.6 X10*3/uL (4.8-10.8)
[2022-03-05 03:25] LABS: Bacteria Urine None Seen (None Seen); Hyaline Casts Urine 0-2 /LPF (0-2); RBC Urine 0-2 /HPF (0-2); WBC Urine 0-5 /HPF (0-5)
[2022-03-05 03:27] LABS: Amphetamine Screen Urine Not Detected (Not Detect); Barbiturates, Urine Not Detected (Not Detect); Benzodiazepines Screen Urine Not Detected (Not Detect); Cannabinoid Screen Urine POSITIVE (Not Detect); Cocaine Screen Urine POSITIVE (Not Detect); Fentanyl, urine Not Detected (Not Detect); Opiate Screen Urine Not Detected (Not Detect); Phencyclidine Screen Urine Not Detected (Not Detect)
[2022-03-05 03:27] LABS: COVID-19 Test Negative (Negative); IDNOW Serial# 6674DD1D
[2022-03-05 03:38] LABS: Alanine Aminotransferase 20 U/L (0-40); Albumin Level 4.3 g/dL (3.5-5.0); Alkaline Phosphatase 103 U/L (39-117); Anion Gap 15 (12-20); Aspartate Amino Transferase 33 U/L (5-37); Blood Urea Nitrogen 15 mg/dL (9-16); Calcium 9.9 mg/dL (8.4-10.2); Carbon Dioxide 22 mmol/L (22-29); Chloride 102 mmol/L (96-108); Creatinine Clr Calc Pharmacy 60.6; Estimated Glomerular Filt Rate 43; Glucose Random 223 mg/dL (60-115); Potassium 3.9 mmol/L (3.3-5.1); Sodium 135 mmol/L (135-145); Total Protein 6.6 g/dL (6.5-8.0)
[2022-03-05] MEDS: LORazepam 1 MG TABLET 2 MG PO (03:40)
[2022-03-05 03:52] LABS: Ethanol < 10 mg/dL
--- NOTE | 2022-03-05 04:55 | ED.PSYCH ---
HPI - Psych General Chief Complaint: Psychiatric Symptoms Stated Complaint: Crisis Time Seen by Provider: 03/05/22 02:34 Source: patient, EMS and police Mode of arrival: EMS History of Present Illness HPI Narrative: 56-year-old male who rise via EMS a section 12, escorted by police department, for attempts arson. Patient is threatening his family and has been off of this medication. Patient smells like gasoline and he is tearful that his is cheating on him and then sent him pictures of herself and her new male senior controls engineer. Related Data Home Medications Medication Instructions Recorded Confirmed dulaglutide 1.5 mg/0.5 mL 0.5 ml subcut QWEEK 03/05/22 03/05/22 subcutaneous pen injector (Trulicity) insulin glargine 100 unit/mL 70 unit subcut DAILY 03/05/22 03/05/22 subcutaneous solution (Lantus U-100 Insulin) losartan 50 mg-hydrochlorothiazide 1 tab PO DAILY 03/05/22 03/05/22 12.5 mg tablet trazodone 50 mg tablet 1 tab PO BEDTIME PRN insomnia 03/05/22 03/05/22 Allergies Allergy/AdvReac Type Severity Reaction Status Date / Time acetaminophen [From Vicodin] Allergy Unknown Hives Verified 07/03/21 03:10 hydrocodone [From Vicodin] Allergy Unknown Hives Verified 07/03/21 03:10 NSAIDS (Non-Steroidal Allergy Unknown Hives Verified 07/03/21 03:11 Anti-Inflamma bee pollen [bee stings] AdvReac Severe Anaphylaxis Verified 07/03/21 03:10 lisinopril AdvReac Severe Angioedema Verified 07/03/21 03:10 Review of Systems Review of Systems: Pertinent positives and negatives as per the HPI. [facility] Past Medical History Source: nursing notes reviewed Medical History Delusional disorder Diabetes GERD (gastroesophageal reflux disease) HTN (hypertension) Pancreatic cancer Family History Family History Other Diabetes HTN (hypertension) Social History Social History Household Members: Spouse and Children Housing: House Do you presently have visiting nurse or other home services: No Patient Tobacco Use Status: Never used Tobacco Substance Use Type: Marijuana Advance Directives: No Advance Directives Information Provided: No service: No Sexual orientation: Straight/Heterosexual Physical Exam Vital Signs: Vital Signs: Last Vital Signs Temp 99.1 F 03/05/22 02:33 Pulse 98 03/05/22 02:33 Resp 16 03/05/22 02:33 BP 128/85 03/05/22 02:33 Pulse Ox 98 03/05/22 02:33 O2 Del Method 03/05/22 02:33 BMI result Body Mass Index 24.8 VITAL SIGNS: Reviewed. GENERAL: Well developed, well nourished, in no acute distress. HEAD: Normocephalic/atraumatic EYES: PERRLA, EOMI LUNGS: Normal breath sounds. No adventitious sounds or accessory muscle use. SpO2<98> CARDIOVASCULAR: Regular rate and rhythm without noted murmurs ABDOMEN: Soft, non-tender, non-distended with bowel sounds. MUSCULOSKELETAL: No tenderness, deformities, or effusions noted on gross inspection. EXTREMITIES: No cyanosis, clubbing or edema. SKIN: Inspection of the skin reveals no rashes NEUROLOGIC: Alert and oriented x 3. Strength and sensation to light touch were grossly intact x 4, cranial nerves 2-12 are grossly intact. PSYCH: Depressed affect, tearful Medications Administered Discontinued Medications Generic Name Dose Route Start Last Admin Trade Name Carmeloq PRN Reason Stop Dose Admin Lorazepam 2 mg 03/05/22 03:37 03/05/22 03:40 Lorazepam 1 Mg Tablet PO 03/05/22 03:38 2 mg ONCE ONE Administration Medical Decision Making Medical Decision Making MDM Narrative: 56-year-old male who is decompensated and off of medications with an arson attempt and continued threats against family. I reviewed and interpreted the workup to be that patient has a mild acute on chronic kidney injury for which we will encourage fluid hydration and repeat a BMP. Otherwise, patient is noted to be positive for cocaine and marijuana but is COVID negative. Patient is otherwise medically cleared as the creatinine level should not preclude patient for by the care team. Lab Data 03/05/22 03:18 03/05/22 03:18 Labs: Lab Results 03/05/22 03/05/22 03/05/22 Range/Units 02:34 02:47 02:57 WBC (4.8-10.8) X10*3/uL RBC (4.60-5.80) X10*6/uL Hgb (14.0-18.0) g/dl Hct (42.0-52.0) % MCV (80.0-98.0) fL MCH (27.0-33.0) pg MCHC (31.0-36.0) g/dl RDW (11.0-16.0) % Plt Count (160-400) X10*3/uL MPV (9.4-12.4) fL Immature Gran % (Auto) (0.0-0.4) % Neut % (Auto) (45-73) % Lymph % (Auto) (20-40) % Branch % (Auto) (2-11) % Eos % (Auto) (0-4) % Baso % (Auto) (0-2) % Lymph # (Auto) (1.2-4.9) X10*3/uL Branch # (Auto) (0.1-1.2) X10*3/uL Eos # (Auto) (0.0-0.4) X10*3/uL Baso # (Auto) (0.0-0.2) X10*3/uL Abs Immat Gran (auto) (0.00-0.03) X10*3/uL Absolute Neuts (auto) (2.0-8.3) x10*3/uL Absolute Nucleated RBC (0.0-0.012) X10*3/uL Nucleated RBC % (auto) (0.0-0.2) /100WBC Sodium (135-145) mmol/L Potassium (3.3-5.1) mmol/L Chloride (96-108) mmol/L Carbon Dioxide (22-29) mmol/L Anion Gap (12-20) BUN (9-16) mg/dL Creatinine (0.5-1.4) mg/dL Estim Creat Clear Calc Estimated GFR POC Glucose 201 H (60-115) mg/dL Random Glucose (60-115) mg/dL Calcium (8.4-10.2) mg/dL Total Bilirubin (0.0-1.0) mg/dL AST (5-37) U/L ALT (0-40) U/L Alkaline Phosphatase (39-117) U/L Total Protein (6.5-8.0) g/dL Albumin (3.5-5.0) g/dL Urine Color Yellow Urine Appearance Clear Urine pH 5.5 (5.0-9.0) Ur Specific [place] 1.010 (1.005-1.025) Urine Protein 100 (2+) H (Neg-Trace) mg/dL Urine Glucose (UA) 100 H (Negative) mg/dL Urine Ketones Negative (Negative) mg/dL Urine Blood Trace H (Negative) Urine Nitrite Negative (Negative) Ur Leukocyte Esterase Negative (Negative) Urine RBC 0-2 (0-2) /HPF Urine WBC 0-5 (0-5) /HPF Ur Squamous Epith Cells 11-20 (0-2) /HPF Urine Bacteria None Seen (None Seen) Hyaline Casts 0-2 (0-2) /LPF Urine Opiates Screen (Not Detect) Urine Fentanyl Screen (Not Detect) Ur Barbiturates Screen (Not Detect) Ur Phencyclidine Scrn (Not Detect) Ur Amphetamines Screen (Not Detect) U Benzodiazepines Scrn (Not Detect) Urine Cocaine Screen (Not Detect) U Marijuana (THC) Screen (Not Detect) Ethyl Alcohol mg/dL COVID-19 ([facility]) Negative (Negative) COVID-19 Clin Com See Note 03/05/22 03/05/22 03/05/22 Range/Units 02:58 03:18 03:18 WBC 9.6 (4.8-10.8) X10*3/uL RBC 4.64 (4.60-5.80) X10*6/uL Hgb 13.3 L (14.0-18.0) g/dl Hct 38.2 L (42.0-52.0) % MCV 82.3 (80.0-98.0) fL MCH 28.7 (27.0-33.0) pg MCHC 34.8 (31.0-36.0) g/dl RDW 12.1 (11.0-16.0) % Plt Count 216 (160-400) X10*3/uL MPV 9.4 (9.4-12.4) fL Immature Gran % (Auto) 0.3 (0.0-0.4) % Neut % (Auto) 73.0 (45-73) % Lymph % (Auto) 17.3 L (20-40) % Branch % (Auto) 8.3 (2-11) % Eos % (Auto) 0.8 (0-4) % Baso % (Auto) 0.3 (0-2) % Lymph # (Auto) 1.7 (1.2-4.9) X10*3/uL Branch # (Auto) 0.8 (0.1-1.2) X10*3/uL Eos # (Auto) 0.1 (0.0-0.4) X10*3/uL Baso # (Auto) 0.0 (0.0-0.2) X10*3/uL Abs Immat Gran (auto) 0.03 (0.00-0.03) X10*3/uL Absolute Neuts (auto) 7.0 (2.0-8.3) x10*3/uL Absolute Nucleated RBC 0.000 (0.0-0.012) X10*3/uL Nucleated RBC % (auto) 0.0 (0.0-0.2) /100WBC Sodium 135 (135-145) mmol/L Potassium 3.9 D (3.3-5.1) mmol/L Chloride 102 (96-108) mmol/L Carbon Dioxide 22 (22-29) mmol/L Anion Gap 15 (12-20) BUN 15 (9-16) mg/dL Creatinine 1.67 H (0.5-1.4) mg/dL Estim Creat Clear Calc 60.6 Estimated GFR 43 POC Glucose (60-115) mg/dL Random Glucose 223 H (60-115) mg/dL Calcium 9.9 (8.4-10.2) mg/dL Total Bilirubin 3.0 H (0.0-1.0) mg/dL AST 33 (5-37) U/L ALT 20 (0-40) U/L Alkaline Phosphatase 103 (39-117) U/L Total Protein 6.6 (6.5-8.0) g/dL Albumin 4.3 (3.5-5.0) g/dL Urine Color Urine Appearance Urine pH (5.0-9.0) Ur Specific [place] (1.005-1.025) Urine Protein (Neg-Trace) mg/dL Urine Glucose (UA) (Negative) mg/dL Urine Ketones (Negative) mg/dL Urine Blood (Negative) Urine Nitrite (Negative) Ur Leukocyte Esterase (Negative) Urine RBC (0-2) /HPF Urine WBC (0-5) /HPF Ur Squamous Epith Cells (0-2) /HPF Urine Bacteria (None Seen) Hyaline Casts (0-2) /LPF Urine Opiates Screen Not Detected (Not Detect) Urine Fentanyl Screen Not Detected (Not Detect) Ur Barbiturates Screen Not Detected (Not Detect) Ur Phencyclidine Scrn Not Detected (Not Detect) Ur Amphetamines Screen Not Detected (Not Detect) U Benzodiazepines Scrn Not Detected (Not Detect) Urine Cocaine Screen POSITIVE H (Not Detect) U Marijuana (THC) Screen POSITIVE H (Not Detect) Ethyl Alcohol mg/dL COVID-19 ([facility]) (Negative) COVID-19 Clin Com 03/05/22 Range/Units 03:18 WBC (4.8-10.8) X10*3/uL RBC (4.60-5.80) X10*6/uL Hgb (14.0-18.0) g/dl Hct (42.0-52.0) % MCV (80.0-98.0) fL MCH (27.0-33.0) pg MCHC (31.0-36.0) g/dl RDW (11.0-16.0) % Plt Count (160-400) X10*3/uL MPV (9.4-12.4) fL Immature Gran % (Auto) (0.0-0.4) % Neut % (Auto) (45-73) % Lymph % (Auto) (20-40) % Branch % (Auto) (2-11) % Eos % (Auto) (0-4) % Baso % (Auto) (0-2) % Lymph # (Auto) (1.2-4.9) X10*3/uL Branch # (Auto) (0.1-1.2) X10*3/uL Eos # (Auto) (0.0-0.4) X10*3/uL Baso # (Auto) (0.0-0.2) X10*3/uL Abs Immat Gran (auto) (0.00-0.03) X10*3/uL Absolute Neuts (auto) (2.0-8.3) x10*3/uL Absolute Nucleated RBC (0.0-0.012) X10*3/uL Nucleated RBC % (auto) (0.0-0.2) /100WBC Sodium (135-145) mmol/L Potassium (3.3-5.1) mmol/L Chloride (96-108) mmol/L Carbon Dioxide (22-29) mmol/L Anion Gap (12-20) BUN (9-16) mg/dL Creatinine (0.5-1.4) mg/dL Estim Creat Clear Calc Estimated GFR POC Glucose (60-115) mg/dL Random Glucose (60-115) mg/dL Calcium (8.4-10.2) mg/dL Total Bilirubin (0.0-1.0) mg/dL AST (5-37) U/L ALT (0-40) U/L Alkaline Phosphatase (39-117) U/L Total Protein (6.5-8.0) g/dL Albumin (3.5-5.0) g/dL Urine Color Urine Appearance Urine pH (5.0-9.0) Ur Specific [place] (1.005-1.025) Urine Protein (Neg-Trace) mg/dL Urine Glucose (UA) (Negative) mg/dL Urine Ketones (Negative) mg/dL Urine Blood (Negative) Urine Nitrite (Negative) Ur Leukocyte Esterase (Negative) Urine RBC (0-2) /HPF Urine WBC (0-5) /HPF Ur Squamous Epith Cells (0-2) /HPF Urine Bacteria (None Seen) Hyaline Casts (0-2) /LPF Urine Opiates Screen (Not Detect) Urine Fentanyl Screen (Not Detect) Ur Barbiturates Screen (Not Detect) Ur Phencyclidine Scrn (Not Detect) Ur Amphetamines Screen (Not Detect) U Benzodiazepines Scrn (Not Detect) Urine Cocaine Screen (Not Detect) U Marijuana (THC) Screen (Not Detect) Ethyl Alcohol < 10 mg/dL COVID-19 ([facility]) (Negative) COVID-19 Clin Com Discharge Plan Discharge Clinical Impression: Delusional disorder, HTN (hypertension), Diabetes, GERD (gastroesophageal reflux disease) Patient Disposition: Still a Patient Prescriptions: No Action insulin glargine [Lantus U-100 Insulin] 100 unit/mL solution 70 unit subcut DAILY trazodone 50 mg tablet 1 tab PO BEDTIME PRN (Reason: insomnia) losartan-hydrochlorothiazide 50-12.5 mg tablet 1 tab PO DAILY Trulicity 1.5 mg/0.5 mL pen injector 0.5 ml subcut QWEEK Interventions: [place]-Suicide Risk Severity Scale Last Done: 03/05/22 02:39
--- NOTE | 2022-03-05 06:09 | PC.NURSE ---
Patient was tearful, upset, and mad at his for cheating and at children for covering up, POC @ 0318 ws 201, Ativan 2 mg po administered at 0340 for raising thought, med rec completed/APR active, behavior non concerning at this time, care team evaluation pending in the morning, VSS, will continue to monitor.
--- NOTE | 2022-03-05 08:04 | PC.NURSE ---
Pt resting quietly at this time, resp reg and even. NAD. Awaiting CARE team eval at this time.
[2022-03-05 08:41] LABS: Glucose, Whole Blood 272 mg/dL (60-115)
[2022-03-05 08:56] VITALS: BP 140/88; PULSE 75; RESP 16; TEMP 36.9; O2SAT 97
[2022-03-05] MEDS: hydroCHLOROthiazide 12.5 MG TABLET PO (09:12)
[2022-03-05] MEDS: Insulin Glargine,Hum.rec.anlog 100 UNIT/ML 10 ML VIAL 70 UNIT SUBCUT (09:12)
[2022-03-05] MEDS: Losartan Potassium 50 MG TABLET PO (09:12)
--- NOTE | 2022-03-05 13:27 | PC.NURSE ---
Maria Fernanda at bedside for pt eval.
--- NOTE | 2022-03-05 14:19 | ECG_ITS ---
Test Reason : CHEDCK QC/QTC Blood Pressure : / mmHG Vent. Rate : 062 BPM Atrial Rate : 062 BPM P-R Int : 132 ms QRS Dur : 080 ms QT Int : 458 ms P-R-T Axes : 053 042 061 degrees QTc Int : 464 ms Normal sinus rhythm Normal ECG When compared with ECG of 09-AUG-2006 12:52, T wave inversion no longer evident in Inferior leads T wave amplitude has increased in Lateral leads QT has lengthened Referred By: Johnny Benz Electronically Signed By:MILLER PARSON
--- NOTE | 2022-03-05 15:18 | PHA.MEDREC ---
Pharmacy Consult ? Medication Reconciliation RN has completed the medication reconciliation, PHARMACY REVIEWED.
[2022-03-05 16:52] VITALS: BP 127/76; PULSE 64; RESP 18; TEMP 36.8; O2SAT 98
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
[2022-03-05 20:50] LABS: Glucose, Whole Blood 160 mg/dL (60-115)
[2022-03-05] MEDS: Insulin Lispro 100 UNIT/ML 3 ML VIAL SUBCUT (21:00)
[2022-03-06 08:10] LABS: Estimated Average Glucose 235 mg/dL; Hemoglobin A1c % 9.8 %
[2022-03-06 08:14] LABS: Glucose, Whole Blood 75 mg/dL (60-115)
[2022-03-06 08:17] LABS: Alanine Aminotransferase 19 U/L (0-40); Albumin Level 3.8 g/dL (3.5-5.0); Alkaline Phosphatase 89 U/L (39-117); Anion Gap 11 (12-20); Aspartate Amino Transferase 27 U/L (5-37); Bilirubin Total 2.1 mg/dL (0.0-1.0); Blood Urea Nitrogen 16 mg/dL (9-16); Calcium 9.7 mg/dL (8.4-10.2); Carbon Dioxide 26 mmol/L (22-29); Chloride 108 mmol/L (96-108); Cholesterol 127 mg/dL; Creatinine Clr Calc Pharmacy 71.8; Estimated Glomerular Filt Rate 52; Glucose Fasting 79 mg/dL (60-99); HDL Cholesterol 68 mg/dL; LDL Cholesterol Calculated 47 mg/dl; Potassium 4.2 mmol/L (3.3-5.1); Sodium 141 mmol/L (135-145); Total Protein 5.9 g/dL (6.5-8.0); Triglycerides 62 mg/dL
[2022-03-06 08:40] VITALS: RESP 18
[2022-03-06 08:46] VITALS: BP 145/92; PULSE 80; RESP 18; TEMP 36.4; O2SAT 100
[2022-03-06] MEDS: Losartan Potassium 50 MG TABLET PO (08:59)
[2022-03-06] MEDS: hydroCHLOROthiazide 12.5 MG TABLET PO (08:59)
[2022-03-06] MEDS: hydrOXYzine HCL 25 MG TABLET PO ×2 (10:18→18:36)
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
[2022-03-06 12:34] LABS: Glucose, Whole Blood 275 mg/dL (60-115)
[2022-03-06 16:59] LABS: Glucose, Whole Blood 172 mg/dL (60-115)
[2022-03-06] MEDS: Insulin Lispro 100 UNIT/ML 3 ML VIAL SUBCUT ×2 (17:10→21:14)
--- NOTE | 2022-03-06 18:23 | PC.NURSE ---
Pt submitted a Three Day Notice on Monday03/06/2022 up on Monday03/09/2022.
[2022-03-06 19:22] VITALS: BP 137/68; PULSE 85
[2022-03-06] MEDS: risperiDONE 2 MG TABLET 4 MG PO (20:24)
[2022-03-06 21:04] LABS: Glucose, Whole Blood 156 mg/dL (60-115)
[2022-03-06] MEDS: Magnesium Hydrox/Alum Hydrox 30 ML ORAL.SUSP PO (21:18)
[2022-03-07 08:46] LABS: Glucose, Whole Blood 150 mg/dL (60-115)
[2022-03-07] MEDS: Losartan Potassium 50 MG TABLET PO (08:52)
[2022-03-07] MEDS: Insulin Glargine,Hum.rec.anlog 100 UNIT/ML 10 ML VIAL 70 UNIT SUBCUT (08:52)
[2022-03-07 09:00] VITALS: BP 143/81; PULSE 89; RESP 16; TEMP 36.2; O2SAT 99
[2022-03-07] MEDS: hydroCHLOROthiazide 12.5 MG TABLET PO (09:04)
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
[2022-03-07 12:24] LABS: Glucose, Whole Blood 299 mg/dL (60-115)
[2022-03-07] MEDS: Insulin Lispro 100 UNIT/ML 3 ML VIAL SUBCUT ×3 (12:26→20:52)
[2022-03-07 16:23] VITALS: BP 154/78; PULSE 98
[2022-03-07 17:17] LABS: Glucose, Whole Blood 268 mg/dL (60-115)
[2022-03-07] MEDS: risperiDONE 2 MG TABLET 4 MG PO (20:20)
[2022-03-07 20:48] LABS: Glucose, Whole Blood 189 mg/dL (60-115)
[2022-03-08 08:00] VITALS: BP 141/66; PULSE 83; RESP 16; TEMP 36.7; O2SAT 99
[2022-03-08 08:11] LABS: Glucose, Whole Blood 180 mg/dL (60-115)
[2022-03-08] MEDS: Insulin Glargine,Hum.rec.anlog 100 UNIT/ML 10 ML VIAL 70 UNIT SUBCUT (08:45)
[2022-03-08] MEDS: Insulin Lispro 100 UNIT/ML 3 ML VIAL SUBCUT ×4 (08:46→21:42)
[2022-03-08] MEDS: Losartan Potassium 50 MG TABLET PO (08:47)
[2022-03-08] MEDS: hydroCHLOROthiazide 12.5 MG TABLET PO (08:47)
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
[2022-03-08 12:00] LABS: Glucose, Whole Blood 281 mg/dL (60-115)
[2022-03-08] MEDS: hydrOXYzine HCL 25 MG TABLET PO (13:36)
[2022-03-08 16:44] LABS: Glucose, Whole Blood 262 mg/dL (60-115)
[2022-03-08 18:00] VITALS: BP 143/78; PULSE 91; RESP 18; TEMP 36.6; O2SAT 98
[2022-03-08] MEDS: risperiDONE 2 MG TABLET 4 MG PO (20:43)
[2022-03-08 21:17] LABS: Glucose, Whole Blood 227 mg/dL (60-115)
[2022-03-09 07:55] LABS: Glucose, Whole Blood 185 mg/dL (60-115)
[2022-03-09 08:15] VITALS: BP 123/58; PULSE 77; RESP 16; TEMP 36.3; O2SAT 98
[2022-03-09] MEDS: Insulin Lispro 100 UNIT/ML 3 ML VIAL SUBCUT ×3 (08:39→20:33)
[2022-03-09] MEDS: hydroCHLOROthiazide 12.5 MG TABLET PO (08:40)
[2022-03-09] MEDS: Losartan Potassium 50 MG TABLET PO (08:40)
[2022-03-09] MEDS: Insulin Glargine,Hum.rec.anlog 100 UNIT/ML 10 ML VIAL 70 UNIT SUBCUT (08:40)
[2022-03-09 09:54] LABS: Alanine Aminotransferase 17 U/L (0-40); Albumin Level 4.1 g/dL (3.5-5.0); Alkaline Phosphatase 120 U/L (39-117); Anion Gap 12 (12-20); Aspartate Amino Transferase 21 U/L (5-37); Blood Urea Nitrogen 16 mg/dL (9-16); Carbon Dioxide 26 mmol/L (22-29); Chloride 105 mmol/L (96-108); Estimated Glomerular Filt Rate 48; Glucose Random 190 mg/dL (60-115); Potassium 4.7 mmol/L (3.3-5.1); Sodium 138 mmol/L (135-145); Total Protein 6.4 g/dL (6.5-8.0)
--- NOTE | 2022-03-09 10:28 | PC.NURSE ---
Pt signed 3 day, up on tuesday 03/14. , social work, UR aware.
[2022-03-09 12:08] LABS: Glucose, Whole Blood 276 mg/dL (60-115)
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
[2022-03-09 18:00] VITALS: BP 154/90; PULSE 91; TEMP 36.8; O2SAT 99
[2022-03-09 18:12] LABS: Glucose, Whole Blood 276 mg/dL (60-115)
[2022-03-09 20:30] LABS: Glucose, Whole Blood 307 mg/dL (60-115)
[2022-03-09] MEDS: risperiDONE 2 MG TABLET 4 MG PO (20:34)
[2022-03-09] MEDS: Magnesium Hydrox/Alum Hydrox 30 ML ORAL.SUSP PO (20:34)
[2022-03-10 08:15] VITALS: BP 115/70; PULSE 79; TEMP 36.6; O2SAT 99
[2022-03-10 08:21] LABS: Glucose, Whole Blood 156 mg/dL (60-115)
[2022-03-10] MEDS: Insulin Lispro 100 UNIT/ML 3 ML VIAL SUBCUT ×4 (08:36→22:30)
[2022-03-10] MEDS: Losartan Potassium 50 MG TABLET PO (08:37)
[2022-03-10] MEDS: hydroCHLOROthiazide 12.5 MG TABLET PO (08:37)
[2022-03-10] MEDS: Insulin Glargine,Hum.rec.anlog 100 UNIT/ML 10 ML VIAL 70 UNIT SUBCUT (08:38)
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
[2022-03-10 12:18] LABS: Glucose, Whole Blood 170 mg/dL (60-115)
[2022-03-10 16:46] LABS: Glucose, Whole Blood 305 mg/dL (60-115)
[2022-03-10] MEDS: risperiDONE 1 MG TABLET PO (18:06)
[2022-03-10 18:34] VITALS: BP 164/74; PULSE 88
[2022-03-10 22:18] LABS: Glucose, Whole Blood 218 mg/dL (60-115)
[2022-03-10] MEDS: risperiDONE 2 MG TABLET 4 MG PO (22:25)
[2022-03-11 06:00] VITALS: BP 117/64; PULSE 66; RESP 14; TEMP 36.3; O2SAT 98
[2022-03-11] MEDS: hydroCHLOROthiazide 12.5 MG TABLET PO (08:17)
[2022-03-11] MEDS: risperiDONE 1 MG TABLET PO (08:17)
[2022-03-11] MEDS: Losartan Potassium 50 MG TABLET PO (08:18)
[2022-03-11] MEDS: Insulin Glargine,Hum.rec.anlog 100 UNIT/ML 10 ML VIAL 70 UNIT SUBCUT (08:19)
[2022-03-11 08:26] LABS: Glucose, Whole Blood 213 mg/dL (60-115)
[2022-03-11] MEDS: Insulin Lispro 100 UNIT/ML 3 ML VIAL SUBCUT ×3 (08:53→21:08)
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
[2022-03-11 12:27] LABS: Glucose, Whole Blood 326 mg/dL (60-115)
[2022-03-11 13:45] VITALS: BMI 24.5
[2022-03-11 16:57] LABS: Glucose, Whole Blood 116 mg/dL (60-115)
[2022-03-11] MEDS: Paliperidone Palmitate 234 MG/1.5 ML SYRINGE IM (19:56)
[2022-03-11] MEDS: risperiDONE 2 MG TABLET 4 MG PO (20:34)
[2022-03-11 20:59] LABS: Glucose, Whole Blood 244 mg/dL (60-115)
--- NOTE | 2022-03-11 21:31 | MHC.RECOVSUP ---
? Reason for consult:BOTH o? Current location:[facility]? o? Identified substance use concern:? -? Support ? Intervention: o? Community resources provided o? Harm reduction discussion ? Plan: o? Follow up tomorrow? ? Additional information:RC spoke pt and discussed harm reduction, and recovery coaching services. pt was very receptive and interested in working with a transition coach. RC provided pt with contact information to complete an intake.
[2022-03-11 21:36] VITALS: BP 128/79; PULSE 68; RESP 16; TEMP 36.4; O2SAT 98
[2022-03-12 08:00] LABS: Glucose, Whole Blood 136 mg/dL (60-115)
[2022-03-12] MEDS: hydroCHLOROthiazide 12.5 MG TABLET PO (08:28)
[2022-03-12] MEDS: Losartan Potassium 50 MG TABLET PO (08:28)
[2022-03-12] MEDS: Insulin Glargine,Hum.rec.anlog 100 UNIT/ML 10 ML VIAL 70 UNIT SUBCUT (08:29)
[2022-03-12 08:31] VITALS: BP 138/73; PULSE 68; RESP 18; TEMP 36.8; O2SAT 98
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
[2022-03-12 12:03] LABS: Glucose, Whole Blood 224 mg/dL (60-115)
[2022-03-12] MEDS: Insulin Lispro 100 UNIT/ML 3 ML VIAL SUBCUT ×3 (12:14→22:39)
[2022-03-12 17:09] LABS: Glucose, Whole Blood 310 mg/dL (60-115)
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
[2022-03-12 18:00] VITALS: BP 147/76; PULSE 93; RESP 18; TEMP 36.6; O2SAT 100
[2022-03-12] MEDS: traZODone HCL 50 MG TABLET PO (22:43)
[2022-03-12] MEDS: risperiDONE 2 MG TABLET 4 MG PO (22:43)
[2022-03-12 22:59] LABS: Glucose, Whole Blood 276 mg/dL (60-115)
[2022-03-13 07:54] LABS: Glucose, Whole Blood 164 mg/dL (60-115)
[2022-03-13] MEDS: Insulin Glargine,Hum.rec.anlog 100 UNIT/ML 10 ML VIAL 70 UNIT SUBCUT (08:19)
[2022-03-13] MEDS: hydroCHLOROthiazide 12.5 MG TABLET PO (08:20)
[2022-03-13] MEDS: Insulin Lispro 100 UNIT/ML 3 ML VIAL SUBCUT ×4 (08:20→22:30)
[2022-03-13] MEDS: Losartan Potassium 50 MG TABLET PO (08:20)
[2022-03-13 08:26] VITALS: BP 129/73; PULSE 70; TEMP 36.7; O2SAT 98
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
[2022-03-13 11:48] LABS: Glucose, Whole Blood 257 mg/dL (60-115)
[2022-03-13] MEDS: Acetaminophen 325 MG TABLET 650 MG PO (14:20)
[2022-03-13 16:54] LABS: Glucose, Whole Blood 292 mg/dL (60-115)
[2022-03-13 20:50] VITALS: BP 125/72; PULSE 92; TEMP 36.4; O2SAT 100
[2022-03-13] MEDS: risperiDONE 2 MG TABLET 4 MG PO (22:18)
[2022-03-13] MEDS: traZODone HCL 50 MG TABLET PO (22:18)
[2022-03-13] MEDS: Magnesium Hydrox/Alum Hydrox 30 ML ORAL.SUSP PO (22:30)
[2022-03-13 22:36] LABS: Glucose, Whole Blood 286 mg/dL (60-115)
[2022-03-14 07:56] VITALS: BP 138/86; PULSE 95; RESP 16; TEMP 36.8; O2SAT 100
[2022-03-14 08:30] LABS: Glucose, Whole Blood 145 mg/dL (60-115)
[2022-03-14] MEDS: Losartan Potassium 50 MG TABLET PO (08:48)
[2022-03-14] MEDS: hydroCHLOROthiazide 12.5 MG TABLET PO (08:48)
[2022-03-14] MEDS: Insulin Glargine,Hum.rec.anlog 100 UNIT/ML 10 ML VIAL 70 UNIT SUBCUT (08:48)
[2022-03-14 08:55] LABS: Alanine Aminotransferase 20 U/L (0-40); Albumin Level 3.9 g/dL (3.5-5.0); Alkaline Phosphatase 125 U/L (39-117); Anion Gap 13 (12-20); Aspartate Amino Transferase 20 U/L (5-37); Bilirubin Total 1.1 mg/dL (0.0-1.0); Blood Urea Nitrogen 13 mg/dL (9-16); Calcium 9.8 mg/dL (8.4-10.2); Carbon Dioxide 27 mmol/L (22-29); Chloride 106 mmol/L (96-108); Creatinine Clr Calc Pharmacy 80.3; Estimated Glomerular Filt Rate 59; Glucose Random 159 mg/dL (60-115); Potassium 4.6 mmol/L (3.3-5.1); Sodium 141 mmol/L (135-145); Total Protein 6.2 g/dL (6.5-8.0)
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
[2022-03-14 12:39] LABS: Glucose, Whole Blood 181 mg/dL (60-115)
[2022-03-14] MEDS: Insulin Lispro 100 UNIT/ML 3 ML VIAL SUBCUT ×3 (12:51→22:07)
[2022-03-14 16:40] LABS: Glucose, Whole Blood 260 mg/dL (60-115)
[2022-03-14 17:37] LABS: Glucose, Whole Blood 222 mg/dL (60-115)
--- NOTE | 2022-03-14 18:44 | PC.NURSE ---
Addendum entered by Megan Gore RN 03/14/22 19:25: Correction: due to the holiday today Joselo's 3 day is up 03/18/22. Original Note: Patient had retracted but signed another 3 day notice today 03/14/22, will be up 03/17/22, .
[2022-03-14 20:15] VITALS: BP 139/73; PULSE 104; TEMP 37.2; O2SAT 98
[2022-03-14] MEDS: risperiDONE 3 MG TABLET PO (22:06)
[2022-03-14] MEDS: traZODone HCL 50 MG TABLET PO (22:07)
[2022-03-14 22:08] LABS: Glucose, Whole Blood 264 mg/dL (60-115)
[2022-03-14] MEDS: Magnesium Hydrox/Alum Hydrox 30 ML ORAL.SUSP PO (22:53)
[2022-03-15 07:59] LABS: Glucose, Whole Blood 145 mg/dL (60-115)
[2022-03-15 08:35] VITALS: BP 142/73; PULSE 87; RESP 16; TEMP 36.6; O2SAT 100
[2022-03-15] MEDS: Insulin Glargine,Hum.rec.anlog 100 UNIT/ML 10 ML VIAL 70 UNIT SUBCUT (08:44)
[2022-03-15] MEDS: hydroCHLOROthiazide 12.5 MG TABLET PO (08:44)
[2022-03-15] MEDS: Losartan Potassium 50 MG TABLET PO (08:44)
[2022-03-15 12:45] LABS: Glucose, Whole Blood 225 mg/dL (60-115)
[2022-03-15] MEDS: Insulin Lispro 100 UNIT/ML 3 ML VIAL SUBCUT ×2 (12:59→21:55)
[2022-03-15 18:00] VITALS: BP 139/78; PULSE 92; TEMP 37.1; O2SAT 100
[2022-03-15 21:46] LABS: Glucose, Whole Blood 238 mg/dL (60-115)
[2022-03-15] MEDS: traZODone HCL 50 MG TABLET PO (22:00)
[2022-03-15] MEDS: risperiDONE 3 MG TABLET PO (22:00)
[2022-03-15] MEDS: Magnesium Hydrox/Alum Hydrox 30 ML ORAL.SUSP PO (22:16)
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
[2022-03-16 08:03] VITALS: BP 128/72; PULSE 79; RESP 16; TEMP 36.7; O2SAT 99
[2022-03-16 08:20] LABS: Glucose, Whole Blood 147 mg/dL (60-115)
[2022-03-16] MEDS: Losartan Potassium 50 MG TABLET PO (08:47)
[2022-03-16] MEDS: hydroCHLOROthiazide 12.5 MG TABLET PO (08:47)
[2022-03-16] MEDS: Insulin Glargine,Hum.rec.anlog 100 UNIT/ML 10 ML VIAL 70 UNIT SUBCUT (08:47)
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
[2022-03-16] MEDS: Paliperidone Palmitate 156 MG/ML SYRINGE IM (11:13)
[2022-03-16 12:06] LABS: Glucose, Whole Blood 223 mg/dL (60-115)
[2022-03-16] MEDS: Insulin Lispro 100 UNIT/ML 3 ML VIAL SUBCUT (12:15)
[2022-03-16 17:46] VITALS: BP 129/66; PULSE 97; TEMP 36.3; O2SAT 97
[2022-03-16 20:25] VITALS: BP 147/87; PULSE 108; TEMP 36.1; O2SAT 100
[2022-03-16] MEDS: Magnesium Hydrox/Alum Hydrox 30 ML ORAL.SUSP PO (20:40)
--- NOTE | 2022-03-16 20:42 | PC.NURSE ---
Patient c/o nausea and was given prn dose of Maalox.
[2022-03-16 22:21] LABS: Glucose, Whole Blood 120 mg/dL (60-115)
[2022-03-16] MEDS: traZODone HCL 50 MG TABLET PO (22:21)
[2022-03-17 06:00] VITALS: BP 110/76; PULSE 80; RESP 16; TEMP 36.6; O2SAT 96
[2022-03-17 07:00] VITALS: BMI 25.2
[2022-03-17 08:45] LABS: Glucose, Whole Blood 118 mg/dL (60-115)
[2022-03-17] MEDS: Losartan Potassium 50 MG TABLET PO (08:56)
[2022-03-17] MEDS: hydroCHLOROthiazide 12.5 MG TABLET PO (08:56)
[2022-03-17] MEDS: Insulin Glargine,Hum.rec.anlog 100 UNIT/ML 10 ML VIAL 70 UNIT SUBCUT (08:56)
--- NOTE | 2022-03-17 12:42 | PM.EVENT ---
Event Note Date of Service: 03/17/22 Event Note: Pt briefly seen for f/u for left groin pain. Pt states he is still experiencing left groin pain, but now taking Tylenol which helps some. Does not want to take prednisone and cannot tolerate NSAIDS. Clarifies that he can take Tylenol. No worsening of symptoms. Pt told groin pulls can take a long time to heal and to use pain as a guide for activity level. Encouraged to do gentle stretching. Will sign off at this time. Pt knows to contact medical again if symptoms worsen. Time Spent With Patient Time: Total time managing care of this patient today ____ minutes.
[2022-03-17 13:23] LABS: Glucose, Whole Blood 300 mg/dL (60-115)
[2022-03-17] MEDS: Insulin Lispro 100 UNIT/ML 3 ML VIAL SUBCUT ×3 (13:25→22:29)
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
[2022-03-17 16:24] LABS: Glucose, Whole Blood 239 mg/dL (60-115)
[2022-03-17 18:00] VITALS: BP 128/72; PULSE 68; RESP 16; TEMP 36.4; O2SAT 97
[2022-03-17 21:56] LABS: Glucose, Whole Blood 216 mg/dL (60-115)
[2022-03-18] MEDS: Losartan Potassium 50 MG TABLET PO (08:41)
[2022-03-18] MEDS: hydroCHLOROthiazide 12.5 MG TABLET PO (08:41)
[2022-03-18] MEDS: Insulin Glargine,Hum.rec.anlog 100 UNIT/ML 10 ML VIAL 70 UNIT SUBCUT (08:42)
[2022-03-18 08:44] VITALS: BP 167/91; PULSE 111; RESP 16; TEMP 36.9; O2SAT 99
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
== END 2022-03-18 12:37 | disposition home or self-care (01) | DRG 885 ==
LOC: HO.ED 14:34 → HO.PM5 17:46
PROVIDERS: Student in an Organized Health Care Education/Training Program; Admitting Provider Social Worker; Emergency Provider Emergency Medicine Emergency Medical Services; PCP Nurse Practitioner Family; Visit Provider Psychiatry & Neurology Psychiatry
DX: F22 Delusional disorders (principal); K21.9 Gastro-esophageal reflux disease without esophagitis; I10 Essential (primary) hypertension; E11.9 Type 2 diabetes mellitus without complications; G89.28 Other chronic postprocedural pain; R10.32 Left lower quadrant pain; Z20.822 Contact with and (suspected) exposure to COVID-19; Z85.07 Personal history of malignant neoplasm of pancreas; Z91.14 Patient's other noncompliance with medication regimen; Z88.5 Allergy status to narcotic agent; Z88.6 Allergy status to analgesic agent; Z88.8 Allergy status to other drugs, medicaments and biological substances; Z79.4 Long term (current) use of insulin; Z79.899 Other long term (current) drug therapy
CPT/HCPCS: 36415; 80053; 80061; 80307; 81001; 82077; 82947; 83036; 85025; 87635; 93005; 99285; J2426

== ENCOUNTER 2024-11-25 10:56 | Inpatient (IN) | payer OTHER, SELFPAY ==
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
[2024-11-25 11:17] VITALS: BP 170/86; BP 176/90; PULSE 40; PULSE 77; RESP 13; TEMP 37; O2SAT 100; O2SAT 99; BMI 28.7
--- NOTE | 2024-11-25 11:39 | ECG_ITS ---
Test Reason : gloria Blood Pressure : */* mmHG Vent. Rate : 49 BPM Atrial Rate : 49 BPM P-R Int : 146 ms QRS Dur : 80 ms QT Int : 464 ms P-R-T Axes : 46 10 44 degrees QTcB Int : 419 ms Sinus bradycardia Otherwise normal ECG When compared with ECG of 05-Mar-2022 14:55, No significant change was found Referred By: Diana Morejon Electronically Signed By: MILLER PARSON
[2024-11-25 11:52] LABS: MANUAL DIFF FLAG NO
[2024-11-25 11:55] LABS: Hematocrit 38.2 % (42.0-52.0); Hemoglobin 13.3 g/dl (14.0-18.0); Mean Corpuscular Volume 86.4 fL (80.0-98.0); Red Blood Count 4.42 X10*6/uL (4.60-5.80); White Blood Count 6.2 X10*3/uL (4.8-10.8)
[2024-11-25 11:56] LABS: Appearance Urine Clear; Glucose Urine UA >=1000 mg/dL (Negative); Imm Gran Abs Auto 0.02 X10*3/uL (0.00-0.03); Imm Gran Pct Auto 0.3 % (0.0-0.4); Lymphocytes Absolute Auto 1.0 X10*3/uL (1.2-4.9); Mean Corpuscular HGB Conc 34.8 g/dl (31.0-36.0); Mean Corpuscular Hemoglobin 30.1 pg (27.0-33.0); NRBC Abs Auto 0.000 X10*3/uL (0.0-0.012); NRBC Pct Auto 0.0 /100WBC (0.0-0.2); PH 5.5 (5.0-9.0); Platelet Count 197 X10*3/uL (160-400); Specific Gravity - Urine >= 1.030 (1.005-1.025); UMIC TRIGGER UACC YES
[2024-11-25 12:11] LABS: Alanine Aminotransferase 11 U/L (0-40); Albumin Level 4.1 g/dL (3.5-5.0); Alkaline Phosphatase 88 U/L (39-117); Anion Gap 9 (12-20); Aspartate Amino Transferase 28 U/L (5-37); Blood Urea Nitrogen 10 mg/dL (9-16); Calcium 9.3 mg/dL (8.4-10.2); Carbon Dioxide 29 mmol/L (22-29); Chloride 107 mmol/L (96-108); Creatinine Clr Calc Pharmacy 74.1; Estimated Glomerular Filt Rate 51; Magnesium 1.8 mg/dL (1.6-2.6); Potassium 4.1 mmol/L (3.3-5.1); Sodium 141 mmol/L (135-145); Total Protein 6.1 g/dL (6.5-8.0)
[2024-11-25 12:21] LABS: Cannabinoid Screen Urine POSITIVE (Not Detect)
--- OUTSIDE RECORDS SUMMARY | 2024-11-25 13:05 | XMS_ITS | Clinical Summary ---
Author Organization [facility] Address [address] [place] [address] Care Team Providers Care Line Supply Name Role Phone Unavailable Primary Care Provider Unavailabl e Surgical History Surgery Date Site/Laterality Comments ANKLE FRACTURE SURGERY 1981 PROCEDURE: MT OPEN TREATMENT MEDIAL MALLEOLUS FRACTURE; COMMENT: R compound ankle Fx, w hardware CHOLECYSTECTOMY 12/04/13 PROCEDURE: HISTORICAL CHOLECYSTECTOMY KNEE SURGERY Left PROCEDURE: HISTORICAL KNEE SURGERY Medical History Medical History Date Comments Obesity 05/25/2010 DX:Obesity Erectile dysfunction associa sara with type 2 diabetes mellitus (CMS/HCC V24, CMS/HCC V28) 06/13/2010 DX:Erectile dysfunction asso ciated with type 2 diabetes mellitus (HCC) Type II or unspecified type diabetes mellitus with ketoacidosis, not stated as uncontrolled 05/25/2010 DX:Type II or unspecified ty pe diabetes mellitus with ketoacidosis, not stated as uncontrolled Old myocardial infarction 06/13/2010 DX:Old myocardial infarction HTN (hypertension) 06/13/2010 DX:HTN (hyper tension) Hypercalcemia 12/23/2013 DX:Hypercalcemia Essential hypertension DX:Essent ial hypertension Family History Medical History Relation Name Comments Diabetes Father Breast cancer Mother Autoimmune disease Neg Hx Blindness Neg Hx Breast cancer Neg Hx Cataracts Neg Hx Colon cancer Neg Hx Coronary artery disease Neg Hx Glaucoma Neg Hx Heart attack Neg Hx Heart failure Neg Hx Hyperlipidemia Neg Hx Hypertension Neg Hx Macular degeneration Neg Hx Mental illness Neg Hx Prostate cancer Neg Hx Sleep apnea Neg Hx Strabismus Neg Hx Thyroid disease Neg Hx Relation Name Status Comments Brother Alive x3, eldest by 1 2 yrs has CAD Daughter Alive healthy age 11 as of 05/24/10 Father (Age 72) Diabetes, HTN Mother (Age 72) Cancer met cancer unknown primary Sister (Age 46) AIDS Son Alive healthy age 10 as of 05/24/10 Social History Tobacco Use Types Packs/Day Years Used Date Smoking Tobacco: Never Smokeless Tobacco: Never Alcohol Use Standard Drinks/Week Comments Yes 0 (1 standard drink = 0.6 oz pur e alcohol) Sex and Gender Information Value Date Recorded Sex Assigned at Not on file Legal Sex Male 12:13 PM EST Gender Identity Not on file Sexual Orientation Not on file Obstetrics History Plan of Treatment Health Maintenance Due Date Last Done Comments Diabetes: Annual GFR (Glomer ular Filtration Rate) 1965 Diabetes: Annual Foot Exam 12/02/1975 Diabetes: Annual Retina Eye Exam 12/02/1975 Hepatitis B Vaccines (1 of 3 - 19+ 3-dose series) 1984 Pneumococcal Vaccine: 50+ Ye ars (2 of 2 - PCV) 12/02/2015 05/25/2010 Zoster Vaccines (1 of 2) 12/02/2015 DTaP,Tdap,and Td Vaccines (2 - Td or Tdap) 05/25/2020 05/25/2010 Cholesterol Screening (Lipid Panel) 01/25/2022 Colorectal Cancer Screening: Colonoscopy 01/25/2022 HIV Screening 01/25/2022 Hepatitis C Screening 01/25/2022 Social Influencers of Health Screening 01/25/2022 Diabetes: Annual Urine Albumin-Creatinine Ratio (uACR) 02/10/2022 Diabetes: Blood Sugar Contro l Test (HGBA1C) 02/10/2022 Hypertension/CHF/CAD Annual BMP Blood Test 02/10/2022 Depression Screening 02/28/2024 COVID-19 Vaccine (2023-2 5 season) 2024 Influenza Vaccine (#1) 2024 11/05/2010 HIB Vaccines Aged Out No longer eligi ble based on patient's age to complete this topic HPV Vaccines Aged Out No longer eligi ble based on patient's age to complete this topic Hepatitis A Vaccines Aged Out No long er eligible based on patient's age to complete this topic IPV Vaccines Aged Out No longer eligi ble based on patient's age to complete this topic MMR Vaccines Aged Out No longer eligi ble based on patient's age to complete this topic Meningococcal ACWY Vaccine Aged Out N o longer eligible based on patient's age to complete this topic Meningococcal B Vaccine Aged Out No l onger eligible based on patient's age to complete this topic RSV Immunization Patients Un alison 20 months Aged Out No longer eligible b ased on patient's age to complete this topic Varicella Vaccines Aged Out No longer eligible based on patient's age to complete this topic
[2024-11-25 13:34] VITALS: BP 176/90; PULSE 50; RESP 12; TEMP 37; O2SAT 100
[2024-11-25 14:00] VITALS: BP 146/85; PULSE 66; RESP 16; TEMP 36.8; O2SAT 98
--- NOTE | 2024-11-25 15:17 | PHA.MEDREC ---
Addendum entered by Stefany De Luna le 11/25/24 15:22: REVIEWED BY PHARMACIST Original Note: Pharmacy Consult ? Medication Reconciliation Pharmacy has completed the medication reconciliation. Spoke with pt and he confirmed his medications. Pt takes Lantus 70 units daily, Losartan-Hydrochlorothiazide 2 tabs daily, Trazodone 50mg at bedtime needed and Trulicity once a week on and confirmed he took it last 11/21.
--- NOTE | 2024-11-25 15:49 | PC.NURSE ---
pt went straight to his room after arrival to the pod, pt has been changed over, pt reports racing thoughts and answered yes to si and hio thoughts , meds offered and pt accepted, risperidal given, pt had a couple sandwiches and now laying in bed, calm and polite at this time
[2024-11-25 16:47] LABS: Glucose, Whole Blood 303 mg/dL (60-115)
[2024-11-25] MEDS: Insulin Glargine,Hum.rec.anlog 100 UNIT/ML 10 ML VIAL 35 UNIT SUBCUT (17:27)
[2024-11-25 18:20] LABS: Glucose, Whole Blood 251 mg/dL (60-115)
[2024-11-25 19:22] LABS: Glucose, Whole Blood 142 mg/dL (60-115)
--- NOTE | 2024-11-25 20:24 | PC.NURSE ---
nurse to nurse report given to Alvino SHAW on inpatient M5 psych unit.
[2024-11-25 21:53] LABS: Glucose, Whole Blood 112 mg/dL (60-115)
[2024-11-25 22:11] LABS: Cholesterol 128 mg/dL (<200); HDL Cholesterol 60 mg/dL (>40); Triglycerides 58 mg/dL (<150)
[2024-11-25 22:17] VITALS: BP 116/76; PULSE 61; RESP 18; TEMP 36.6; O2SAT 98
[2024-11-25 22:24] LABS: Free T4 (Free Thyroxine) 0.99 ng/dL (0.71-1.85); Thyroid Stimulating Hormone 0.92 uIU/mL (0.32-4.0)
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
[2024-11-26 05:18] LABS: Hemoglobin A1C 274.5425 umol/L; Total Hemoglobin (HGBA1C) 3393.8050 umol/L
[2024-11-26 07:55] LABS: Glucose, Whole Blood 178 mg/dL (60-115)
[2024-11-26 07:59] VITALS: BP 122/78; PULSE 72; RESP 16; TEMP 36.2; O2SAT 100
[2024-11-26] MEDS: Insulin Glargine,Hum.rec.anlog 100 UNIT/ML 10 ML VIAL 70 UNIT SUBCUT (08:33)
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
[2024-11-26 11:53] LABS: Glucose, Whole Blood 254 mg/dL (60-115)
[2024-11-26 17:15] LABS: Glucose, Whole Blood 68 mg/dL (60-115)
[2024-11-26 20:00] VITALS: BP 145/83; PULSE 89; RESP 18; TEMP 37.3; O2SAT 99
[2024-11-26 21:27] LABS: Glucose, Whole Blood 242 mg/dL (60-115)
[2024-11-27 08:00] VITALS: BP 130/69; PULSE 82; TEMP 36.4; O2SAT 98
[2024-11-27 08:04] LABS: Glucose, Whole Blood 142 mg/dL (60-115)
[2024-11-27 08:48] VITALS: BP 130/69
[2024-11-27] MEDS: Insulin Glargine,Hum.rec.anlog 100 UNIT/ML 10 ML VIAL 70 UNIT SUBCUT (08:49)
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
[2024-11-27 12:00] LABS: Glucose, Whole Blood 315 mg/dL (60-115)
--- NOTE | 2024-11-27 17:18 | PC.NURSE ---
Pt reported and showed this RN a lump on his R lower abdomen/groin. Hospitalist Luli was notified via tiger text.
--- NOTE | 2024-11-27 17:18 | PC.NURSE ---
Pt declined his blood sugar to be taken prior to his dinner.
[2024-11-27 20:00] VITALS: BP 133/71; PULSE 76; TEMP 37; O2SAT 99
[2024-11-27 20:52] LABS: Glucose, Whole Blood 265 mg/dL (60-115)
[2024-11-28 08:00] VITALS: BP 131/77; PULSE 108; O2SAT 96
[2024-11-28 08:15] LABS: Glucose, Whole Blood 201 mg/dL (60-115)
[2024-11-28 08:49] VITALS: BP 116/65
[2024-11-28] MEDS: Insulin Glargine,Hum.rec.anlog 100 UNIT/ML 10 ML VIAL 70 UNIT SUBCUT (08:49)
[2024-11-28 08:50] VITALS: BP 116/65
[2024-11-28 12:29] LABS: Glucose, Whole Blood 189 mg/dL (60-115)
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
[2024-11-28 17:03] LABS: Glucose, Whole Blood 237 mg/dL (60-115)
[2024-11-28 19:55] VITALS: BP 139/79; PULSE 96; TEMP 36.6; O2SAT 99
[2024-11-28 20:24] LABS: Glucose, Whole Blood 163 mg/dL (60-115)
[2024-11-29 08:20] LABS: Glucose, Whole Blood 183 mg/dL (60-115)
[2024-11-29] MEDS: Insulin Glargine,Hum.rec.anlog 100 UNIT/ML 10 ML VIAL 70 UNIT SUBCUT (08:33)
[2024-11-29 08:34] VITALS: BP 115/60; BP 115/66; PULSE 71; TEMP 36.4; O2SAT 98
[2024-11-29 12:04] LABS: Glucose, Whole Blood 253 mg/dL (60-115)
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
--- NOTE | 2024-11-29 16:03 | MHC.RECOVRN ---
TW met with pt in Group room A on M5 after receiving a consult to Addiction Medicine for Alcohol Use. Intention was to discuss current alcohol use and concerns related to increased risk of alcohol use related problems, and to offer recovery support and resources. On approach pt standing at nurses station in no apparent distress. Pt reports feeling ?not bad at all? and is agreeable to meeting with this manual writer. He is pleasant, calm, and engaged during the interview. Pt reports he is currently unhoused and is drinking approximately ? gallon of Vodka, straight, in 2-3 days time. He states he has been drinking since he was 16, it progressively worsened into his 20?s and and the past two years, ?it?s the worst it?s ever been?.? Pt reports when not drinking he experiences tremors, n/v, cold sweats, and ?body cramping?.? Pt reports previous admission to [facility] and did well. He states he was able to acquire 9 months of abstinence ?but I stopped doing the stuff that was helping?. He states he was previously connected to , utilizing a sponsor, and attending meetings regularly. He states he intends to return.?? Pt reports his SW currently has referrals into the [facility] where he is hopeful to find placement.? Pt states he was previously prescribed Naltrexone and feels it was helpful ?when I actually took it?. Naltrexone has been reordered and reports he will follow up with [facility] in which he is already connected, for future prescription fulfillment and declined a referral to the [facility].? Discussed how alcohol use has impacted health, including negative impact on mental health and overall physical well being.? Discussed risk and reduction strategies including drinking below the recommended limit.? Provided pt with written resources including information on inpatient and outpatient treatment, ERIN, harm reduction and recovery coaching.?? Pt declines further? intervention, or outpatient appt for treatment related to AUD at this time.? Pt was provided with TW?s contact information if questions or concerns arise, which he denies at this time. Tw available as needed for continued support and resources.?
[2024-11-29 16:59] LABS: Glucose, Whole Blood 86 mg/dL (60-115)
[2024-11-29 20:32] VITALS: BP 125/70; PULSE 82; RESP 16; TEMP 36.6; O2SAT 100
[2024-11-29 21:05] LABS: Glucose, Whole Blood 290 mg/dL (60-115)
[2024-11-30 08:00] VITALS: BP 139/81; PULSE 93; RESP 18; TEMP 36.5; O2SAT 98
[2024-11-30 08:07] LABS: Glucose, Whole Blood 123 mg/dL (60-115)
[2024-11-30] MEDS: Insulin Glargine,Hum.rec.anlog 100 UNIT/ML 10 ML VIAL 70 UNIT SUBCUT (09:16)
[2024-11-30 09:18] VITALS: BP 139/80
[2024-11-30 09:19] VITALS: BP 138/80
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
[2024-11-30 12:20] LABS: Glucose, Whole Blood 210 mg/dL (60-115)
[2024-11-30 17:18] LABS: Glucose, Whole Blood 155 mg/dL (60-115)
[2024-11-30 20:11] LABS: Glucose, Whole Blood 196 mg/dL (60-115)
[2024-11-30 20:33] VITALS: BP 121/65; PULSE 85; RESP 18; TEMP 36.9; O2SAT 100
[2024-12-01 07:56] LABS: Glucose, Whole Blood 98 mg/dL (60-115)
[2024-12-01 08:00] VITALS: BP 104/60; PULSE 68; RESP 16; TEMP 36.3; O2SAT 99
[2024-12-01] MEDS: Insulin Glargine,Hum.rec.anlog 100 UNIT/ML 10 ML VIAL 70 UNIT SUBCUT (08:31)
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
== END 2024-12-01 10:00 | disposition home or self-care (01) | DRG 885 ==
LOC: HO.ED 14:13 → HO.PM5 20:12
PROVIDERS: Physician Assistant; Admitting Provider Nurse Practitioner Psychiatric/Mental Health; Emergency Provider Emergency Medicine; Visit Provider Psychiatry & Neurology Psychiatry
DX: F22 Delusional disorders (principal); R45.851 Suicidal ideations; E11.65 Type 2 diabetes mellitus with hyperglycemia; F32.A Depression, unspecified; R45.850 Homicidal ideations; K21.9 Gastro-esophageal reflux disease without esophagitis; I10 Essential (primary) hypertension; Z79.85 Long-term (current) use of injectable non-insulin antidiabetic drugs; Z79.899 Other long term (current) drug therapy
CPT/HCPCS: 36415; 80048; 80061; 80076; 80307; 81001; 82947; 83036; 83735; 84439; 84443; 85025; 93005; 99285; S9485

== ENCOUNTER → 2024-11-25 11:39 | Outpatient (BNV) | payer OTHER, SELFPAY | PROVIDERS: Emergency Provider Emergency Medicine; Visit Provider Internal Medicine | DX: R00.1 Bradycardia, unspecified (principal) | CPT/HCPCS: 93010 ==

== ENCOUNTER → 2024-11-25 19:56 | Outpatient (BNV) | payer OTHER, SELFPAY | PROVIDERS: Admitting Provider Nurse Practitioner Psychiatric/Mental Health; Emergency Provider Emergency Medicine; Visit Provider Psychiatry & Neurology Psychiatry | DX: F33.3 Major depressive disorder, recurrent, severe with psychotic symptoms (principal); I10 Essential (primary) hypertension; E13.65 Other specified diabetes mellitus with hyperglycemia; Z79.4 Long term (current) use of insulin | CPT/HCPCS: 90792; 99231; 99232; 99238 ==

== ENCOUNTER → 2024-11-25 19:56 | Outpatient (BNV) | payer OTHER, SELFPAY | PROVIDERS: Admitting Provider Nurse Practitioner Psychiatric/Mental Health; Emergency Provider Emergency Medicine; Visit Provider Nurse Practitioner Family | DX: I10 Essential (primary) hypertension (principal); E11.9 Type 2 diabetes mellitus without complications | CPT/HCPCS: 99221 ==

== ENCOUNTER 2025-02-19 08:51 | Outpatient (AMB) | payer OTHER, SELFPAY ==
--- NOTE | 2025-02-19 08:54 | A.OFFPC_ITS ---
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 Accompanied by: Self / Same As Patient Allergies hydrocodone (From Vicodin) Allergy (Unknown, Verified 02/19/25 09:00) Hives NSAIDS (Non-Steroidal Anti-Inflamma Allergy (Unknown, Verified 02/19/25 09:00) Hives bee pollen (bee stings) Adverse Reaction (Severe, Verified 02/19/25 09:00) Anaphylaxis lisinopril Adverse Reaction (Severe, Verified 02/19/25 09:00) Angioedema Medication List - Last Reconciled 02/19/25 by Surjit Simons MD blood sugar diagnostic (FreeStyle Lite Strips) As directed dulaglutide (Trulicity) 3 mg subcut TH@0900 empagliflozin (Jardiance) 25 mg PO QAM hydrochlorothiazide 25 mg PO DAILY insulin glargine (Lantus U-100 Insulin) 70 units (0.7 mL) subcut DAILY 30 days lamotrigine 25 mg PO BEDTIME losartan 100 mg (2 x 50 mg) PO DAILY risperidone 4 mg (2 x 2 mg) PO BEDTIME rosuvastatin 20 mg PO DAILY tadalafil (Cialis) 20 mg PO DAILY PRN trazodone 50 mg PO BEDTIME PRN 30 days Tobacco use date assessed: 02/19/25 Dental Screening Dental Screen Date: 02/19/25 Did you have a dental visit in the last 12 months?: No HPI HPI Comments History of Present Illness Details History of Present Illness The patient is a 59 year old male presenting to establish primary care, obtain medication refills, and manage his chronic health conditions. Type 2 diabetes mellitus: The patient has a history of type 2 diabetes diagnosed in 2004. He reports that his condition is currently out of whack. His last hemoglobin A1c was 7.3%, and a ztwyv-hf-ysoc test during this visit was 8.7%. For diabetes screening, he has seen an tactical/mobile watch officer this year but has not seen a electronic bench technician. He saw a prosthodontist/educator and a professional advisor about a year ago. Hypertension: The patient has a history of hypertension, which he states has been erratic. He recently sought urgent care for a blood pressure reading of 150, accompanied by dizziness and a headache. Mood disorder: The patient reports having mood swings, for which he takes lamotrigine. He also takes risperidone, which he was told helps balance his other medications. He has a history of a psychiatric breakdown and is not currently receiving therapy but has requested a referral. History of bile duct cancer: In 2014, the patient was diagnosed with bile duct cancer and underwent surgical resection of his bile ducts. He did not receive chemotherapy or radiation treatment. History of small bowel obstruction: The patient developed a small bowel obstruction due to scar tissue following his cancer surgery. He required a surgical procedure for this and was hospitalized for 30 days. Surgical History: - Bile duct resection for bile duct canc er - Surgical repair of small bowel obstruc tion Medications: - Trulicity 3 mg, once weekly for diabet es - Jardiance 25 mg, once daily for diabet es - Insulin 70 units at night for diabetes - Hydrochlorothiazide 25 mg daily for hy pertension - Losartan 100 mg for hypertension - Lamotrigine for mood swings - Risperidone for mood stabilization - Trazodone for sleep - Tadalafil 20 mg for sexual function Social History: - Substance Use: The patient denies smok ing, alcohol consumption, and illicit drug use. - Employment: He is not currently workin [employer] due to fatigue. - Past Employment: He previously worked as a railroad rosenbaum for 28 years. - Family Status: The patient is and has children. - Weight Management: He has lost a signi ficant amount of weight, having previously weighed almost 300 pounds, and now maintaining a weight between 230- 240 pounds. - Nutrition: He reports trying to eat he althy. Diagnostic Results: - Labs: Qnkcs-ux-xxgv hemoglobin A1c was 8.7%. - Prior Labs: The patient's previous hem oglobin A1c was 7.3%. Past Medical History - Type 2 diabetes mellitus, diagnosed in 2004. - Hypertension. - Mood disorder, with a history of a psy chiatric hospitalization following a breakdown. - Bile duct cancer, diagnosed in 2014, s tatus post-surgical resection. - Small bowel obstruction, status post-s urgical repair. - Erectile dysfunction. - Insomnia. - History of obesity with significant we ight loss. Health Maintenance - Comprehensive lab work will be ordered , including a CBC, CMP, HbA1c, lipid panel, hepatitis B/C/HIV screen, syphilis screen, TSH, vitamin B12, folate, and vitamin D. - Medication refills will be provided fo r all of the patient's current medications. [facility] Medical History Pancreatic cancer Delusional disorder GERD (gastroesophageal reflux disease) HTN (hypertension) Family History (Updated 02/19/25 @ 09:03 by Alfreda Moore CMA) Mother Metastatic cancer Father HTN (hypertension) Diabetes Social History Household Members: Spouse and Children Housing: House Do you presently have visiting nurse or other home services: No Patient Tobacco Use Status: Never used Tobacco e-Cigarette/Vaping Use: Never Used Substance Use Type: Crack/Cocaine and Marijuana service: Yes ([employer] 5600-0747) Current occupational status: retired Sexual orientation: Straight/Heterosexual Cognitive needs: Yes (elvia) Hearing needs: No Vision needs: No Questionnaire PHQ-9 Over the last 2 weeks, how often have you been bothered by any of the following problems? 1. Little interest or pleasure in doing things: more than half the days 2. Feeling down, depressed, or hopeless: more than half the days 3. Trouble falling or staying asleep, or sleeping too much: more than half the days 4. Feeling tired or having little energy: more than half the days 5. Poor appetite or overeating: more than half the days 6. Feeling bad about yourself - or that you are a failure or have let yourself or your family down: more than half the days 7. Trouble concentrating on things, such as reading the newspaper or watching television: more than half the days 8. Moving or speaking so slowly that other people could have noticed. Or the opposite - being so fidgety or restless that you have been moving around a lot more than usual: more than half the days 9. Thoughts that you would be better off or of hurting yourself in some way: more than half the days Total score: 18 Depression Screening Interpretation: Positive Depression Screening Follow-up: Existing condition, In treatment and Follow-up Visit Requested Depression Screening Done: Yes Source: Developed by Drs. Compa Gill, Donnie Gregg and colleagues, with an educational corin from [employer]. Thrive Questionnaire Date Thrive assessed: 02/19/25 I am a: Patient What is your living situation today?: I have a steady place to live Within the past 12 months, did the food you bought not last and you didn't have the money to get more?: Often true Within the past 12 months, did you worry whether your food would run out before you got money to buy more?: Sometimes True Do you have trouble paying for medicines?: Yes Do you have trouble getting transportation to medical appointments?: No Do you have trouble paying your heating and electricity bill?: Yes Do you have trouble taking care of your child, family member or friend?: No Do you have trouble with day-to-day activities such as bathing, preparing meals, shopping, managing finances, etc.?: Yes Are you currently unemployed and looking for a job?: Yes Are you interested in more education?: No Currently or been in a relationship where the following occur: No concerns reported THRIVE Score: 3 AUDIT C Alcohol Use Questionnaire (AUDIT-C) 1. How often do you have a drink containing alcohol?: Never Total Score: 0 GAVIN-7 AMB Questionnaire GAVIN-7 Date GAVIN - 7 assessed: 02/19/25 Feeling nervous, anxious, or on edge: 0 = Not at all Not being able to stop or control worryin = Not at all Worrying too much about different things: 0 = Not at all Trouble relaxin = Not at all Being so restless that it is hard to sit still: 0 = Not at all Becoming easily annoyed or irritable: 0 = Not at all Feeling afraid as if something awful might happen: 0 = Not at all Total GAVIN-7 score (0-4 normal; 5-9 mild; 10-14 moderate; 15-21 severe): 0 Source: Developed by Drs. Compa Gill, Donnie Gregg and colleagues, with an educational corin from [employer]. Review of Systems Narrative Review of Systems - General: Reports fatigue. - Neurological: Reports episodes of dizziness and headache when his blood pressure is elevated. - Psychiatric: Reports mood swings. - Sleep: Reports difficulty sleeping due to marital stress. 10-point ROS reviewed and negative except as noted in HPI Physical exam (Primary Care) Vital Signs: Last Vital Signs Temp 98.3 F 02/19/25 09:04 Pulse 66 02/19/25 09:04 BP 112/64 02/19/25 09:04 Pulse Ox 98 02/19/25 09:04 BMI result Body Mass Index 29.3 Tobacco/Smoking Status: Tobacco use Status Tobacco use date assessed 02/19/25 02/19/25 08:55 Patient Tobacco Use Status Never used Tobacco 02/19/25 08:55 e-Cigarette/Vaping Use Never Used 02/19/25 08:55 PHQ-9: PHQ-9 Score PHQ-9: Total score 18 02/19/25 09:33 Depression Screening Interpretation: Positive Depression Screening Follow-up: Existing condition, In treatment and Follow-up Visit Requested Thrive Assessment: Date of Thrive Assessment Date Thrive assessed 02/19/25 02/19/25 08:55 Currently or been in a relationship where the following occur: No concerns reported Narrative Physical Exam General: Well-appearing, in no acute distress. Vital signs: Within normal limits. HEENT: Normocephalic, atraumatic. PERRLA, EOMI. Conjunctiva clear, sclera anicteric. Oropharynx clear, mucous membranes moist. TMs intact bilaterally. Neck: Supple, no lymphadenopathy, no thyromegaly, no JVD or carotid bruits. Cardiovascular: RRR, normal S1/S2, no murmurs, rubs, or gallops. Peripheral pulses 2+ and symmetric. No edema. Respiratory: Lungs clear to auscultation bilaterally, no wheezes, rales, or rhonchi. Normal effort. Abdomen: Soft, non-tender, non-distended. Normoactive bowel sounds. No hepatosplenomegaly, no masses. Abdominal scar present from previous bile duct cancer surgery and small bowel obstruction surgery. MSK: Full range of motion, no joint swelling or deformity. Normal gait. Skin: Warm, dry, intact. No rashes, lesions, or pallor. Neuro: Alert and oriented x3. Cranial nerves II-XII intact. Strength 5/5 throughout. Sensation intact. Reflexes 2+ symmetric. Normal coordination and gait. Psych: Appropriate mood and affect. Normal judgment and insight. Office Procedures Flu Questionnaire Does the patient have a severe egg allergy?: No Does the patient have severe life threatening allergies?: No Does the patient have a fever or illness today?: No Has the patient ever had Guillain-[place] Syndrome?: No Has the patient ever had any past reaction to a flu shot?: No Results AMB Hemoglobin A1c AMB Hemoglobin A1c 8.7 % Last Edit by Alfreda Moore CMA on 02/19/25 09:3 2 Immunizations Fluarix [id number] (PF) 45 mcg (15 mcg x 3)/0.5 mL IM syringe Performing Provider: Surjit Simons MD [facility] Document[facility] (not given) by: Alfreda Moore CMA on 02/19/25 09:20 Reason Not Given: Received Previously Results Reviewed Results Reviewed: Laboratory Last Values Hgb A1c (Clinic) 8.7 % (4.0-6.0) H 02/19/25 09:21 Coding Level of Care Code New Pt Level 4 (75538) Add On Problem Visit Only Diagnoses Diabetes mellitus with hyperglycemia E13.65; Z79.4 Diabetes mellitus usp insulin use: with usp use Diabetes mellitus type: other specified (including FINESSE) HTN (hypertension) I10 Depression F32.A Depression Type: unspecified History of bile duct cancer Z85.09 History of intestinal obstruction Z87.19 Erectile dysfunction N52.9 Insomnia G47.00 Assessment & Plan Assessment & Plan (1) Diabetes mellitus with hyperglycemia: Code(s): E11.65 - Type 2 diabetes mellitus with hyperglycemia Category: Medical Qualifiers: Diabetes mellitus usp insulin use: with usp use Diabetes mellitus type: other specified (including FINESSE) Qualified Code(s): E13.65 - Other specified diabetes mellitus with hyperglycemia; Z79.4 - senior care (current) use of insulin (2) HTN (hypertension): Code(s): I10 - Essential (primary) hypertension Category: Medical (3) Depression: Code(s): F32.A - Depression, unspecified Category: Medical Qualifiers: Depression Type: unspecified Qualified Code(s): F32.A - Depression, unspecified (4) History of bile duct cancer: Code(s): Z85.09 - Personal history of malignant neoplasm of other digestive organs Category: Medical (5) History of intestinal obstruction: Code(s): Z87.19 - Personal history of other diseases of the digestive system Category: Medical (6) Erectile dysfunction: Code(s): N52.9 - Male erectile dysfunction, unspecified Category: Medical (7) Insomnia: Code(s): G47.00 - Insomnia, unspecified Category: Medical Plan Consent The patient verbally consented to a physical examination during the visit. Patient was informed and verbally consented to the use of an ambient scribe for clinic note documentation during this visit. Plan 1. Type 2 Diabetes Mellitus - The patient's fxqxw-yt-xipy HbA1c is 8.7%, an increase from his prior 7.3%, indicating poor glycemic control. - Current medications including Trulicity, Jardiance, and insulin will be refilled. - A referral to Podiatry will be placed for a peripheral neuropathy check. - Referrals to a prosthodontist/educator and a professional advisor will be placed, as it has been about a year since his last visits. - Lab work ordered includes HbA1c and urine microalbumin to further assess diabetic management and kidney function. 2. Hypertension - The patient reports uncontrolled blood pressure, with recent symptomatic readings up to 150. - His current medications, hydrochlorothiazide 25 mg and losartan 100 mg, will be refilled. 3. Cardiovascular Disease Prevention - The patient is not on a statin, which is recommended for cardiovascular risk reduction in patients with type 2 diabetes. - Rosuvastatin 20 mg daily will be prescribed. - Labs ordered include a lipid panel to check cholesterol and triglycerides. 4. Mood Disorder - The patient requested a referral for therapy. - His medications for mood, lamotrigine and risperidone, will be refilled. - Provided a referral to [facility] for therapy via [employer] and offered a formal referral to [facility] as an alternative. 5. Erectile Dysfunction - The patient's tadalafil 20 mg will be refilled. 6. Insomnia - The patient's trazodone for sleep will be refilled. Discussion Notes I discussed with the patient his goal of establishing primary care and the importance of managing his chronic conditions, including type 2 diabetes and hypertension. We reviewed his current medications, and I confirmed that I would be refilling them. I explained the significance of his elevated hemoglobin A1c of 8.7% and the need to bring it down. I educated him on the importance of statin therapy for protecting against cardiovascular risks associated with diabetes and informed him I would be prescribing rosuvastatin. In response to his request for mental health support, I provided a direct referral to [facility] for tele-therapy, explaining that my patients have had positive experiences with them. We also discussed the plan for comprehensive lab work and referrals to podiatry, a prosthodontist/educator, and a professional advisor to provide a multi-faceted approach to his care. The patient was agreeable to the plan. Patient Instructions - I am sending refills for all your current medications to your pharmacy. - Please start taking rosuvastatin 20 mg once a day. This is a new medication to help protect you from heart problems related to your diabetes. - Go to a lab to have your blood drawn for the tests we discussed. - My office will put in referrals for you to see a foot doctor, a ems educator, and a professional advisor. They will call you to schedule appointments. - For mental health support, please call the number for [facility] that I provided to set up a therapy appointment. - If you don't like that service, let me know, and I can provide another referral. Medical Decision Making The patient is a 59-year-old male with a complex medical history, including poorly controlled type 2 diabetes and hypertension, who is establishing primary care after a significant lapse. The decision was made to refill all his current medications to ensure continuity of care and prevent adverse events, especially given his recent urgent care visit for symptomatic hypertension. His vsbkj-ni-agzy HbA1c of 8.7% is concerning and indicates a need for aggressive management; therefore, referrals to a prosthodontist/educator, professional advisor, and podiatry were initiated to provide comprehensive support. Given his diagnosis of type 2 diabetes, the patient has an elevated risk for cardiovascular disease. To address this, rosuvastatin 20 mg was initiated for primary prevention, in line with standard of care guidelines. To address his mental health needs, a direct referral was provided for tele-therapy to facilitate quicker access to care, with a backup plan for a formal in-system referral if necessary. Comprehensive labs were ordered to establish a new baseline and screen for potential complications of his chronic conditions. Total Time Statement 30 min Total time spent caring for the patient today includes pre-visit chart review, documentation, review of laboratory and diagnostic imaging results, medication reconciliation, medically necessary evaluation, counseling on diagnoses, care coordination, ordering appropriate tests and medications, review of tests performed by other providers, reporting test results to the patient, and communication with other healthcare providers. Orders: Orders Complete Blood Count Auto Diff Today Z13.9 - Encounter for screening, unspecified Hepatitis B Surface Antigen Today Z13.9 - Encounter for screening, unspecified Syphilis Screen Today Z13.9 - Encounter for screening, unspecified Comprehensive Met. Panel Today Z13.9 - Encounter for screening, unspecified Lipid Panel Today Z13.9 - Encounter for screening, unspecified Hepatitis B Surface Antibody Today Z13.9 - Encounter for screening, unspecified Vitamin D 25-OH (D2 and D3) Today Z13.9 - Encounter for screening, unspecified Influenza [id number] Immunization Today Z23 - Encounter for immunization AMB Hemoglobin A1c Today Z13.9 - Encounter for screening, unspecified Hepatitis C Antibody Today Z13.9 - Encounter for screening, unspecified TSH reflex Free T4 Today Z13.9 - Encounter for screening, unspecified HIV Ab/Ag Today Z13.9 - Encounter for screening, unspecified UA CC w/rflx Micro + Cult Today Z13.9 - Encounter for screening, unspecified Vitamin B12 and Folate Today Z13.9 - Encounter for screening, unspecified Hemoglobin A1c Today Z13.9 - Encounter for screening, unspecified Magnesium Today Z13.9 - Encounter for screening, unspecified Microalbumin, Random (w Creat) Today Z13.9 - Encounter for screening, unspecified Referrals Nurse Navigator Referral E13.65 - Other specified diabetes mellitus with hyperglycemia, Z79.4 - bed bug exterminator (current) use of insulin Podiatry Referral E13.65 - Other specified diabetes mellitus with hyperglycemia, Z79.4 - bed bug exterminator (current) use of insulin Nutrition/Dietitian Referral E13.65 - Other specified diabetes mellitus with hyperglycemia, Z79.4 - bed bug exterminator (current) use of insulin Medications: New rosuvastatin 20 mg PO DAILY 90 tabs 0RF Refilled losartan 100 mg (2 x 50 mg) PO DAILY 30 tabs 0RF
--- OUTSIDE RECORDS SUMMARY | 2025-02-19 08:56 | XMS_ITS | Clinical Summary ---
Author Organization [facility] Address [address] [place] [address] Care Team Providers Care Simulation Developer Name Role Phone Unavailable Primary Care Provider Unavailabl e Surgical History Surgery Date Site/Laterality Comments ANKLE FRACTURE SURGERY 1981 PROCEDURE: [place] OPEN TREATMENT MEDIAL MALLEOLUS FRACTURE; COMMENT: R [...] on file Sexual Orientation Not on file Plan of Treatment Health Maintenance Due Date Last Done Comments Colorectal Cancer Screening: Colonoscopy 1965 Diabetes: Annual GFR (Glomer ular Filtration Rate) 1965 Diabetes: Annual Foot Exam 12/02/1975 Diabetes: Annual Retina Eye Exam 12/02/1975 Hepatitis B Vaccines (1 of 3 - 19+ 3-dose series) 1984 Pneumococcal Vaccine: 50+ Ye ars (2 of 2 - PCV) 12/02/2015 05/25/2010 RSV Immunization Adult Patie nts (1 - Risk 50-74 years 1-dose series) 12/02/2015 Zoster Vaccines (1 of 2) 12/02/2015 DTaP,Tdap,and Td Vaccines (2 - Td or Tdap) 05/25/2020 05/25/2010 Cholesterol Screening (Lipid Panel) 01/25/2022 HIV Screening 01/25/2022 Hepatitis C Screening 01/25/2022 Social Influencers of Health Screening 01/25/2022 Diabetes: Annual Urine Albumin-Creatinine Ratio (uACR) 02/10/2022 Diabetes: Blood Sugar Contro l Test (HGBA1C) 02/10/2022 Hypertension/CHF/CAD Annual BMP Blood Test 02/10/2022 Depression Screening 02/28/2024 COVID-19 Vaccine ( - 2024-2 6 season) 2024 Influenza Vaccine (#1) 2024 11/05/2010 [...]
--- OUTSIDE RECORDS SUMMARY | 2025-02-19 08:56 | XMS_ITS | Patient Health Record ---
Author Organization [facility] Address [address] [place] [address] Care Team Providers Care Biology Teacher Name Role Phone NO, PCP Primary Care Provider Jeanie Zhao Unavailable [phone] Reason For Referral No Information Encounters Encounter Location Date Provider Diagnosis [facility] [address] [place] [address] [phone] 12/25/2024 Jeanie Zhao Plan Of Treatment No Information Insurance Providers Payer Name Payer Address Payer Phone Subscriber Number Group Number Insured Name Patient Relationship to Insured Coverage Start Date Coverage End Date [place] [employer] [address] [place] [address] 0000 Joselo Morris Self - patient is the insured 5 5
[2025-02-19 09:04] VITALS: BP 112/64; PULSE 66; TEMP 36.8; O2SAT 98; BMI 29.3
== END 2025-02-19 09:39 | disposition home or self-care (01) ==
LOC: HO.HMCFMS 08:52
PROVIDERS: PCP Student in an Organized Health Care Education/Training Program; Visit Provider Student in an Organized Health Care Education/Training Program
DX: E13.65 Other specified diabetes mellitus with hyperglycemia (principal); Z79.4 Long term (current) use of insulin; I10 Essential (primary) hypertension; F32.A Depression, unspecified; Z85.09 Personal history of malignant neoplasm of other digestive organs; Z87.19 Personal history of other diseases of the digestive system; N52.9 Male erectile dysfunction, unspecified; G47.00 Insomnia, unspecified; Z23 Encounter for immunization; Z13.9 Encounter for screening, unspecified

== ENCOUNTER → 2025-02-19 08:51 | Outpatient (BNVA) | payer OTHER, SELFPAY | PROVIDERS: Visit Provider Student in an Organized Health Care Education/Training Program | DX: E11.65 Type 2 diabetes mellitus with hyperglycemia (principal); I10 Essential (primary) hypertension; F32.A Depression, unspecified; N52.9 Male erectile dysfunction, unspecified; G47.00 Insomnia, unspecified; Z79.4 Long term (current) use of insulin; Z79.84 Long term (current) use of oral hypoglycemic drugs; Z79.899 Other long term (current) drug therapy; Z85.09 Personal history of malignant neoplasm of other digestive organs; Z87.19 Personal history of other diseases of the digestive system; Z13.31 Encounter for screening for depression; Z13.39 Encounter for screening examination for other mental health and behavioral disorders | CPT/HCPCS: 83036; 90471; 96127; 99202 ==